=== PATIENT | male | born 1980 | race Caucasian/White ===

== ENCOUNTER 2020-01-28 07:04 | Outpatient (CLI) | payer OTHER ==
[2020-01-28 17:01] LABS: #Basophils 0.1 thou/uL (0.0-0.2); #Eosinphils 0.5 thou/uL (0.0-0.7); #Lymphocytes 2.5 thou/uL (1.20-3.40); #Monocytes 1.1 thou/uL (0.11-0.59); #Neutrophils 5.3 thou/uL (1.40-6.50); %Basophils 0.6 % (0.0-1.0); %Eosinophils 5.1 % (0.0-10.0); %Lymphocytes 26.5 % (21.0-51.0); %Monocytes 11.3 % (0.0-10.0); %Neutrophils 56.6 % (42.0-75.0); Hemoglobin 8.5 g/dL (14.0-18.0); Mean Corpuscular HGB CONC 33.5 g/dL (32.0-36.0); Mean Corpuscular Hemoglobin 38.1 pg (27.0-31.0); Mean Platelet Volume 6.9 fL (7.4-10.4); Platelet Count 163 thou/uL (130-400); RBC Distribution Width 14.2 % (11.5-14.5); Red Blood Cell (RBC) Count 2.23 mill/uL (4.70-6.10); White Blood Cell (WBC) Count 9.3 thou/uL (4.8-10.8)
[2020-01-28 17:24] LABS: ALT (SGPT) 25 U/L (8-55); AST (SGOT) 48 U/L (5-34); Albumin 1.9 g/dL (3.5-5.0); Alkaline Phosphatase 228 U/L (40-110); Anion Gap 8 mmol/L (10-20); BUN (Urea Nitrogen) 17 mg/dL (8.9-20.6); Bilirubin, Total 1.8 mg/dL (0.2-1.2); Calc. Creatinine Clearance 0 mL/min (70-130); Calcium 7.4 mg/dL (7.8-10.44); Carbon Dioxide 22 mmol/L (22-29); Chloride 108 mmol/L (98-107); Estimated GFR-MDRD Greater than 90; Globulin 5.3 g/dL (2.4-3.5); Glucose 103 mg/dL (70-105); Potassium 4.4 mmol/L (3.5-5.1); Protein, Total 7.2 g/dL (6.0-8.3); Sodium 134 mmol/L (136-145)
--- NOTE | 2020-01-28 17:52 | RAD ---
TWO VIEWS OF THE CHEST: 01/28/20 COMPARISON: 01/11/20 HISTORY: Preoperative patient. FINDINGS: Prior examination demonstrated interstitial prominence in the lung bases as well as air space disease in the left base and mid left lung zone. This examination demonstrates mild course residual linear d ensity in the left perihilar region with subtle reticulonodular density in the left upper lobe sugges ting persistent but improving inflammatory/infectious pneumonitis. There is a moderate sized right pl eural effusion present, enlarged when compared to the 01/10/20 examination. No pneumothorax is noted. IMPRESSION: Persistent but improving interstitial opacity in the left perihilar region with left upper lobe retic ulonodular density. Enlarging nonspecific right pleural effusion. POS: [facility]
[2020-01-29 16:50] LABS: SARS-CoV-2 MS2 Positive; SARS-CoV-2 N Gene Negative; SARS-CoV-2 S Gene Negative; SARS-CoV-2 orf1ab Negative
== END 2020-01-28 07:05 | disposition home or self-care (01) ==
LOC: LABBT 07:04
PROVIDERS: ATTEND Surgery
DX: Z01.818 Encounter for other preprocedural examination (principal); Z11.59 Encounter for screening for other viral diseases; K42.9 Umbilical hernia without obstruction or gangrene; K40.30 Unilateral inguinal hernia, with obstruction, without gangrene, not specified as recurrent; J98.4 Other disorders of lung; J90 Pleural effusion, not elsewhere classified
CPT/HCPCS: 71046; 80053; 85025; 87635; 93005; 93010; U0003

== ENCOUNTER → 2020-02-01 | Day surgery (SDC) | payer OTHER ==
[2020-02-01 09:05] LABS: Fluid, pH - Pleural Fld 7.39 (7.60 - 7.66)
[2020-02-01 09:45] LABS: Fluid, Triglycerides 21 mg/dL (Not Available); Pleural Fluid, Amylase Less than 30 U/L (Not Available); Pleural Fluid, Glucose 112 mg/dL; Pleural Fluid, LDH Less than 25 U/L (Not Available); Pleural Fluid, Protein Less than 1.0 g/dL
[2020-02-01 11:01] LABS: RBC Count-Automated (BF) 638 /cu.mm; WBC/Nucleated-Auto (BF) 105 uL
[2020-02-01 11:12] LABS: BF Color Yellow; Body Fluid Source Thoracentesis Fluid; Clarity Hazy (Clear); Tube # EDTA
[2020-02-01 11:16] LABS: BF Segmented Neutrophils 8 %; Cell Count Non Hematic 77 %; Lymphocytes 15 %
--- NOTE | 2020-02-01 12:04 | RAD ---
CHEST 1 VIEW: INDICATION: History of thoracentesis. COMPARISON: Prior exam dated 01/28/2020. FINDINGS: No pneumothorax is evident. Moderate right pleural effusion persists. Interstitial airspace opacity of the left upper lobe is stable-appearing. Cardiac silhouette that is upper limits of normal for s ize is stable-appearing. Osseous structures are unchanged. IMPRESSION: 1. Stable right-sided pleural effusion. 2. Stable interstitial and airspace opacities of the left upper lobe. POS: [facility]
--- NOTE | 2020-02-01 13:09 | OP ---
DATE OF PROCEDURE: 02/01/2020 PROCEDURE PERFORMED: Thoracentesis. INDICATION FOR PROCEDURE: Pleural effusion, rule out empyema. DESCRIPTION OF PROCEDURE: After informed consent, the right posterior thorax was cleaned with chlorhexidine, 1% lidocaine was infiltrated into the right 9th intercostal space in the midscapular line. Pleural cavity was entered, and slightly turbid yellow fluid about a total of 20 mL was removed initially. Thereafter, using an 8-Chadian catheter, total of 2000 mL, 2 L was removed without difficulty. It appears that fluid may be secondary to his ascites. However, culture and cytology have been performed. Once x-ray has been reviewed, he can be discharged home. Follow up with his primary care physician. Job ID: [id number]
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
== END ==
LOC: SDC 07:41
PROVIDERS: ATTEND Internal Medicine Pulmonary Disease
PROC: 0W993ZZ Drainage of Right Pleural Cavity, Percutaneous Approach (ICD-10-PCS; principal; 2020-02-01)
DX: J90 Pleural effusion, not elsewhere classified (principal); R18.8 Other ascites; Z87.891 Personal history of nicotine dependence
CPT/HCPCS: 32554; 71045; 82150; 82945; 83615; 84157; 84478; 85060; 87070; 87116; 87205; 87206; 88112; 88305; 89051; J1642

== ENCOUNTER 2020-02-03 09:58 | Inpatient (IN) | payer OTHER, SELFPAY ==
[2020-02-03 11:05] LABS: #Basophils 0.1 thou/uL (0.0-0.2); #Eosinphils 0.2 thou/uL (0.0-0.7); #Lymphocytes 2.5 thou/uL (1.20-3.40); #Neutrophils 4.8 thou/uL (1.40-6.50); %Eosinophils 2.6 % (0.0-10.0); %Monocytes 11.4 % (0.0-10.0); Hemoglobin 9.7 g/dL (14.0-18.0); Mean Corpuscular HGB CONC 32.5 g/dL (32.0-36.0); Mean Corpuscular Hemoglobin 37.2 pg (27.0-31.0); Mean Platelet Volume 6.5 fL (7.4-10.4); Platelet Count 258 thou/uL (130-400); RBC Distribution Width 14.8 % (11.5-14.5); Red Blood Cell (RBC) Count 2.62 mill/uL (4.70-6.10); White Blood Cell (WBC) Count 8.6 thou/uL (4.8-10.8)
[2020-02-03 11:12] LABS: INR-International Normal Ratio 1.7; PTT 38.4 sec (22.9-36.1); Prothrombin Time 19.4 sec (12.0-14.7)
[2020-02-03 12:04] LABS: ALT (SGPT) 30 U/L (8-55); AST (SGOT) 85 U/L (5-34); Albumin 2.1 g/dL (3.5-5.0); Alkaline Phosphatase 263 U/L (40-110); Anion Gap 9 mmol/L (10-20); BUN (Urea Nitrogen) 16 mg/dL (8.9-20.6); Bilirubin, Total 1.9 mg/dL (0.2-1.2); CK (CPK) 69 U/L (30-200); Calc. Creatinine Clearance 0 mL/min (70-130); Calcium 7.5 mg/dL (7.8-10.44); Carbon Dioxide 21 mmol/L (22-29); Chloride 109 mmol/L (98-107); Estimated GFR-MDRD Greater than 90; Globulin 6.7 g/dL (2.4-3.5); Glucose 91 mg/dL (70-105); Lipase 61 U/L (8-78); Potassium 4.8 mmol/L (3.5-5.1); Protein, Total 8.8 g/dL (6.0-8.3); Sodium 134 mmol/L (136-145)
--- NOTE | 2020-02-03 13:52 | RAD ---
PORTABLE CHEST: 02/03/20 HISTORY: Patient was seen two days ago and fluid drained from the lungs. Now reports increased swelling in leg s and abdomen. COMPARISON: A 02/11 chest x-ray. The film is shot in a somewhat lordotic fashion. Heart size is within normal limits considering the t echnique. Right sided pleural effusion is stable as compared to the prior exam. No new process. IMPRESSION: Stable exam. POS: [facility]
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
[2020-02-03] MEDS ORDERED: Sodium Bicarbonate 2.5 MEQ/5 ML VIAL ONE (14:12)
[2020-02-03] MEDS ORDERED: Lidocaine 1% PF 5 ML VIAL ONE (14:13)
[2020-02-03] MEDS ORDERED: Ondansetron PF 4 MG/2 ML Vial IVP PRN (14:19)
[2020-02-03] MEDS ORDERED: Acetaminophen 325 MG TAB PO PRN (14:19)
--- NOTE | 2020-02-03 15:39 | ULT ---
Sonographic guided paracentesis HISTORY: Symptomatic Ascites. FINDINGS: After explaining the procedure and answering all questions, sonographic survey of the abdom en showed a large amount of free fluid. Sterile technique, buffered local anesthesia, sonographic guidance, and a right lateral approach were used to carefully advance a 19-gauge Yueh needle and catheter into the free fluid. Catheter was left to drain a total volume of 4.0 L clear yellow liquid. Patient was limited to 4 L gi mallory that he has not built a tolerance for drainage. Catheter was removed with moderate amount of free fluid remaining. Patient tolerated the procedure we ll and was returned in improved condition. IMPRESSION : Technically successful sonographic guided paracentesis. A portion was sent to pathology for evaluatio n.
[2020-02-03 16:06] LABS: RBC Count-Automated (BF) 376 /cu.mm; WBC/Nucleated-Auto (BF) 178 uL
[2020-02-03 16:19] VITALS: BMI 26.0
[2020-02-03 16:26] LABS: BF Color Yellow; Body Fluid Source Ascites Body Fluid; Clarity Hazy (Clear); Tube # EDTA
[2020-02-03 16:30] LABS: BF Segmented Neutrophils 11 %; Cell Count Non Hematic 32 %; Eosinophils 1 %; Lymphocytes 55 %
[2020-02-03] MEDS: Furosemide 40 MG/4 ML VIAL SLOW IVP SCH ×2 (18:09→21:18)
[2020-02-03 18:26] LABS: Fluid, Protein 1.2 g/dL (Not Available)
[2020-02-03] MEDS: Morphine 2 MG/ML SYRINGE SLOW IVP PRN (21:13)
[2020-02-04 05:42] LABS: #Basophils 0.1 thou/uL (0.0-0.2); #Eosinphils 0.2 thou/uL (0.0-0.7); #Neutrophils 4.6 thou/uL (1.40-6.50); %Basophils 0.9 % (0.0-1.0); %Eosinophils 2.8 % (0.0-10.0); %Lymphocytes 33.4 % (21.0-51.0); %Monocytes 11.1 % (0.0-10.0); %Neutrophils 51.7 % (42.0-75.0); Hemoglobin 8.3 g/dL (14.0-18.0); Mean Corpuscular HGB CONC 33.5 g/dL (32.0-36.0); Mean Platelet Volume 6.4 fL (7.4-10.4); Platelet Count 217 thou/uL (130-400); RBC Distribution Width 14.9 % (11.5-14.5); Red Blood Cell (RBC) Count 2.17 mill/uL (4.70-6.10)
[2020-02-04 06:00] LABS: Anion Gap 4 mmol/L (10-20); BUN (Urea Nitrogen) 15 mg/dL (8.9-20.6); Calc. Creatinine Clearance 190 mL/min (70-130); Calcium 7.1 mg/dL (7.8-10.44); Carbon Dioxide 24 mmol/L (22-29); Chloride 107 mmol/L (98-107); Estimated GFR-MDRD Greater than 90; Glucose 87 mg/dL (70-105); Sodium 131 mmol/L (136-145)
[2020-02-04] MEDS: Morphine 2 MG/ML SYRINGE SLOW IVP PRN ×3 (06:46→20:54)
[2020-02-04] MEDS ORDERED: Spironolactone 25 MG TAB PO SCH (09:15)
--- NOTE | 2020-02-04 10:02 | ULT ---
Sonogram right upper quadrant HISTORY: Right quadrant pain. Cirrhosis. FINDINGS: Gallbladder is incompletely distended. No stones visible. Wall measures up to 1.0 cm. Patie nt was reportedly not tender over the gallbladder fossa at the time of the exam. Common duct is 0.4 cm. Liver has a heterogeneous echotexture and nodular contour. No focal mass or intrahepatic biliary dila tation. Moderate amount of free fluid is evident throughout the right upper quadrant. IMPRESSION : Cirrhotic appearance of the liver. No evidence of biliary obstruction. Thickened gallbladder wall is nonspecific in the setting of liver ascites. Moderate ascites. .
[2020-02-04 10:17] LABS: ALT (SGPT) 24 U/L (8-55); AST (SGOT) 61 U/L (5-34); Albumin 1.5 g/dL (3.5-5.0); Alkaline Phosphatase 205 U/L (40-110); Bilirubin, Direct 0.8 mg/dL (0.1-0.3); Bilirubin, Total 1.3 mg/dL (0.2-1.2); Protein, Total 6.6 g/dL (6.0-8.3)
[2020-02-04 10:45] LABS: Ferritin 325.64 ng/mL (22-322); Thyroid Stimulating Hormone 1.5048 uIU/mL (0.35-4.94)
--- NOTE | 2020-02-04 14:48 | PDOC.HOSPP ---
- Subjective Encounter Date: 02/04/20 Encounter Time: 12:00 Subjective: THe patient reports significant improvement in abd distension. States he feels more relief. SOB has improved. He denies chest pain Patient still has significant swelling in legs - Objective Vital Signs & Weight: Vital Signs (12 hours) Temp Pulse Resp BP Pulse Ox 02/04/20 07:17 98.7 F 98 16 120/76 94 L 02/04/20 04:33 99.0 F 100 16 116/69 94 L Weight Weight 186 lb 12.8 oz I&O: 02/03/20 02/04/20 02/05/20 06:59 06:59 06:59 Output Total 1650 Balance -1650 Result Diagrams: 02/04/20 05:32 02/04/20 05:32 Hospitalist ROS - Review of Systems Constitutional: denies: fever, chills - Medication Medications: Active Medications Generic Name Dose Route Start Last Admin Trade Name Freq PRN Reason Stop Dose Admin Morphine Sulfate 2 mg 02/03/20 18:10 02/04/20 14:45 Morphine SLOW IVP 2 mg Q4H PRN Administration Severe Pain (7-10) - Exam General Appearance: NAD, awake alert Eye: PERRL, anicteric sclera ENT: normocephalic atraumatic, no oropharyngeal lesions Neck: supple, no JVD Heart: RRR, no murmur, no gallops, no rubs Respiratory: CTAB, no wheezes, no rales, no ronchi, no tachypnea Gastrointestinal - other findings: abdomen distended, dull to percussoin Extremities - other findings: 3+ edema, worst on RLE. SUrgical scar RLE from fasciotomy Skin - other findings: mild erythema RLE Neurological: cranial nerve grossly intact, normal sensation to touch, no focal deficits, no new deficit Musculoskeletal: normal tone, normal strength, no muscle wasting Hosp A/P - Plan This is a 39 year old male with past medical history of cirrhosis presenting with ascites #Decompensated cirrhosis #Right sided pleural effusion - ordered for paracentesis, patient had 4L drained. Fluid culture growing gram + rods, no organisms however. Cell count negative for SBP - hep C negative, hep B serology ordered, as well as ceruloplasmin, ANCA, anti- smooth muscle, antimitochondrial antibody. Ferritin elevated. - will place GI consult since its new diagnosis - MELD > 18, would need liver transplant at some point. Pt reports not drinking alcohol for past four months - ordered spironolactone, continue 40 mg IV lasix Macrocytic anemia - Hb 9, likely from liver disease. B12 high, folate and TSH normal Transaminitis - AST improving to 65 Hyponatremia - decreased to 131. Continue diuresis
[2020-02-04] MEDS ORDERED: Furosemide 40 MG/4 ML VIAL SLOW IVP SCH (15:00)
[2020-02-04] MEDS: Furosemide 40 MG/4 ML VIAL SLOW IVP SCH (20:54)
[2020-02-04] MEDS ORDERED: Vancomycin 1 GM in Premix Bag 1 BAG IVPB SCH (21:00)
--- NOTE | 2020-02-04 21:31 | CON ---
DATE OF CONSULTATION: 02/04/2020 REQUESTING PHYSICIAN: Arleen Betts MD REASON FOR CONSULTATION: Cirrhosis. HISTORY OF PRESENT ILLNESS: Gato Alvarado is a very pleasant 39-year-old man. He has a prior history of long-term tobacco and alcohol abuse with really heavy daily alcohol use for many years until about four months ago when he entered [facility] in [place]. He has now been completely abstinent from tobacco and alcohol for the past four months. His only alcohol-related pertinent history was evidently an alcohol-related seizure last year in [place]. He has no prior known history of liver disease. He was recently hospitalized here within the past couple of weeks with a right pleural effusion and underwent thoracentesis. He was not discharged on any diuretics and he started getting worsening shortness of breath over the past couple of weeks, as well as new abdominal distention and new bilateral lower extremity edema over the past 1 to 2 weeks as well. The tightness in the abdomen has been uncomfortable, but otherwise not painful. He has felt that maybe he has had a drop in urine output as well. There has been no change in bowel habits, which continued to be normal with no melena or hematochezia. There is no associated nausea or vomiting or fevers. He has not been on any special diet or any medications as an outpatient. Upon admission yesterday, ultrasound imaging showed a moderate amount of ascites and chest x-ray showed stable right pleural effusion. He has a cirrhotic liver configuration with normal common bile duct. He has some mild elevation in alkaline phosphatase and AST and is severely hypoalbuminemic with albumin 1.5. He also has coagulopathy with INR 1.7, but normal platelet count. He has received a dose of IV Lasix and had 1650 of urine output yesterday. He is also being started on spironolactone. He does feel his abdomen is less distended after a 4 L paracentesis yesterday. He has never undergone upper or lower endoscopy. Multiple labs are still pending. REVIEW OF SYSTEMS: Full review of systems including constitutional, head, eyes, ears, nose, throat, GI, , cardiovascular, respiratory, musculoskeletal, and neurologic systems is negative except as noted in the HPI. PAST MEDICAL HISTORY: 1. Cirrhosis, new diagnosis based on current presentation and imaging findings. 2. Right pleural effusion, status post thoracentesis. 3. Alcoholic seizure, May 2019. ALLERGIES: NO KNOWN DRUG ALLERGIES. OUTPATIENT MEDICATIONS: None. INPATIENT MEDICATIONS: 1. Lasix 40 mg IV daily. 2. Morphine p.r.n. 3. Zofran p.r.n. 4. Tylenol p.r.n. FAMILY HISTORY: Significant for cardiac disease. He also had an uncle with alcoholic liver disease, who of liver cancer. SOCIAL HISTORY: The patient is a former smoker, but quit four months ago. He formally abused alcohol heavily with the equivalent of probably 12 beers per day for many years. He quit all alcohol 4 months ago. Remote history of marijuana, none currently. PHYSICAL EXAMINATION: VITAL SIGNS: Temperature 98.7, pulse 98, blood pressure 120/76, and 94% oxygen saturation on room air. GENERAL: A 39-year-old man, lying in bed comfortably, in no distress. SKIN: He is not jaundiced. No rashes were palpable. EYES: No scleral icterus. Extraocular movements intact. ENT: Mucous membranes moist. No oral lesions. LYMPH: No submandibular or supraclavicular lymphadenopathy. THYROID: Nontender to palpation. HEART: Regular rate and rhythm. LUNGS: Decreased breath sounds on the right, but no respiratory distress. No wheezing. ABDOMEN: Distended with ascites. The abdomen is not tense; however. Bowel sounds are active. Dull to percussion on the flanks. Nontender to palpation throughout. He has an umbilical hernia, which is easily reducible. EXTREMITIES: He has 2+ bilateral lower extremity edema. He has had traumatic amputation of the right foot as well as evidence of trauma to the right leg and vein graft from the left leg. NEUROLOGIC: Cranial nerves 2 through 12 intact bilaterally. No focal deficits. No asterixis. LABORATORY STUDIES: WBC 9.0, hemoglobin 8.3, MCV 113, and platelets 217. INR 1.7. BNP only 33.9. Sodium 131, potassium 4.0, BUN 15, creatinine 0.62, glucose 87, total bilirubin 1.3, direct bilirubin 0.8, alkaline phosphatase 205, AST 61, ALT 24, albumin 1.5, and lipase only 61. Troponin negative. TSH normal at 1.5. Vitamin B12 normal at 1564, folic acid normal at 9.7, ferritin level is elevated to 325.6, but transferrin is low at 98. Hepatitis C antibody negative. HIV antibody negative. Other labs still pending including AMAYA, ASMA, AMA, ceruloplasmin, and hepatitis B serology. Ascites fluid studies show 178 wbc's, but only 11% PMNs. Fluid total protein is 1.2, LDH 48, amylase 19, and fluid albumin is pending. Fluid culture is showing gram-positive rods with identification pending. IMAGING STUDIES: Chest x-ray shows stable right pleural effusion. Abdominal ultrasound shows cirrhotic liver configuration. No liver mass. There is moderate ascites, nonspecific gallbladder wall thickening with normal common bile duct 4 mm. ASSESSMENT AND PLAN: 1. Cirrhosis, likely secondary to chronic alcohol abuse, with new decompensation. 2. Ascites with anasarca. I note the patient has normal BNP and what appears to be good renal function, ascites fluid total protein is low at 1.2 with fluid albumin only 1.5. This is all highly suggestive of transudate with ascites secondary to cirrhosis and portal hypertension. This would be the initial decompensation of his cirrhosis as he had no prior diagnosis. The ascites fluid cell counts do not meet criteria for SBP, also note the absence of fever or significant abdominal pain, despite the fluid culture showing gram-positive rods. Await further identification on this, may be a contaminant. I had a long discussion with the patient about ascites management. He has already undergone 4 L paracentesis. The longer term management consists of low-sodium diet of less than 2000 mg sodium per day, as well as diuretic therapy. Agree with continuing IV Lasix while inpatient. On hospital discharge, would recommend sending him home with Lasix 40 mg daily and spironolactone 100 mg daily. It is possible he will require repeat paracentesis while diuretic doses are being adjusted. He will need to follow up closely in GI/liver Clinic. 3. Hypoalbuminemia likely secondary to cirrhosis contributing to fluid overload. 4. HCC screening. Note his abdominal ultrasound does not show any evidence of liver mass. We will order an AFP level with morning labs. We will need to repeat imaging an AFP level every six months. Discussed with the patient. 5. Risk for possible esophageal varices. The patient is going to need upper endoscopy at some point in the near future to assess for the presence of possible esophageal varices given his findings of portal hypertension. However, I would not proceed with esophagogastroduodenoscopy right now in the acute setting, until his fluid management issues are better controlled, so we will plan on esophagogastroduodenoscopy in the outpatient setting in the coming weeks or months. 6. Anemia, macrocytic. This is likely secondary to prior alcohol abuse, cirrhosis, relatively poor nutrition. Note, B12 and folic acid levels are normal. We will probably plan on colonoscopy along with esophagogastroduodenoscopy on an outpatient basis. 7. Still awaiting further labs including AMAYA, ASMA, AMA, ceruloplasmin, and hepatitis B serologies. We can follow these up on an outpatient basis. I suspect that his cirrhosis is indeed secondary to a long history of alcohol abuse, but I encouraged him on his alcohol abstinence for the past four months, and emphasize that he cannot go back to drinking ever again. 8. Again, we will plan to see him back in the GI Clinic in the next few weeks, monitor electrolytes and fluid status. If he is having clinical or laboratory deterioration despite all these measures, we could consider outpatient referral to one of the liver transplant centers in [place]. Thank you for the consultation. Please call anytime with questions or concerns. Job ID: [id number]
[2020-02-04] MEDS ORDERED: cefTRIAXone Sodium 1,000 MG in Syringe 0 ML IVPB SCH (22:30)
[2020-02-04] MEDS: cefTRIAXone\\ROCEPHIN 1 GM in Sodium Chloride 0.9% 100 ML IVPB SCH (23:21)
[2020-02-05] MEDS: Morphine 2 MG/ML SYRINGE SLOW IVP PRN ×4 (04:32→21:50)
[2020-02-05 06:37] LABS: Hemoglobin 9.2 g/dL (14.0-18.0); Mean Corpuscular HGB CONC 32.9 g/dL (32.0-36.0); Mean Platelet Volume 6.2 fL (7.4-10.4); Platelet Count 239 thou/uL (130-400); RBC Distribution Width 14.9 % (11.5-14.5)
[2020-02-05 07:01] LABS: Anion Gap 9 mmol/L (10-20); BUN (Urea Nitrogen) 15 mg/dL (8.9-20.6); Calc. Creatinine Clearance 190 mL/min (70-130); Calcium 7.2 mg/dL (7.8-10.44); Carbon Dioxide 22 mmol/L (22-29); Chloride 105 mmol/L (98-107); Estimated GFR-MDRD Greater than 90; Glucose 84 mg/dL (70-105); Sodium 132 mmol/L (136-145)
[2020-02-05] MEDS: Furosemide 40 MG/4 ML VIAL SLOW IVP SCH ×2 (08:55→21:40)
--- NOTE | 2020-02-05 13:56 | PRG ---
DATE OF SERVICE: 02/05/2020 SUBJECTIVE: Mr. Alvarado is feeling pretty well. He feels his abdominal distention is about the same. He continues on IV Lasix. He has been afebrile. Peritoneal fluid is growing out presumptive Corynebacterium. He received a dose of IV vancomycin and is now receiving IV ceftriaxone. OBJECTIVE: VITAL SIGNS: Temperature 98.2, pulse 95, blood pressure 111/65, 94% oxygen saturation on room air. GENERAL: No acute distress. HEART: Regular rate and rhythm. LUNGS: Clear to auscultation bilaterally. ABDOMEN: Distended with ascites, not tense, umbilical hernia is easily reducible, nontender. Bowel sounds present. EXTREMITIES: 1+ bilateral lower extremity edema. LABORATORY DATA: Hemoglobin 9.2, WBC 9.0, platelets 239. INR 1.7. Sodium 132, potassium 4.0, BUN 15, creatinine 0.62, calcium 7.2. AFP is normal at 2.0. Peritoneal fluid, albumin is still pending, total protein 1.2, WBC is 178, only 11% neutrophils, but peritoneal fluid culture is growing presumptive Corynebacterium with further identification and susceptibilities pending. ASSESSMENT AND PLAN: 1. Cirrhosis, likely secondary to alcohol, now with initial decompensation. Still awaiting results of autoimmune markers, hepatitis B serology, and ceruloplasmin. Can follow these up on an outpatient basis. I do suspect cirrhosis is secondary to alcohol abuse, but thankfully he has quit drinking for the past 4 months. I encouraged him in this. 2. Ascites with anasarca, ascites fluid total protein is low at 1.2 with serum albumin only 1.5, fluid albumin pending, but this is all highly suggestive of transudate, but this is highly secondary to cirrhosis and portal hypertension. He has normal BNP and good renal function. On his hospital discharge, would recommend Lasix 40 mg daily and spironolactone 100 mg daily. For now, he is receiving IV Lasix. We will start the spironolactone. 3. Bacterial peritonitis. Cell count and differential was not suggestive of SBP, and he has no fever or significant abdominal pain or peritoneal signs. However, the fluid culture is growing back presumptive Corynebacterium species. He is now appropriately receiving ceftriaxone. I am going to give him 100 g of IV albumin over the course of the next 24 hours as well. I anticipate if he is doing clinically well tomorrow, antibiotics could be transitioned over to oral to complete the course. 4. HCC screening. Abdominal ultrasound does not show any evidence of liver mass. AFP is normal. We will need to repeat imaging and AFP level every 6 months. Please call anytime with questions or concerns. We are going to plan to see him back in clinic in the next 2 to 3 weeks. Job ID: [id number]
[2020-02-05] MEDS: Albumin 25% 25 GM/100 ML BOT IVPB SCH ×2 (14:24→21:36)
--- NOTE | 2020-02-05 15:18 | PDOC.HOSPP ---
- Subjective Encounter Date: 02/05/20 Encounter Time: 11:10 Subjective: family at bedside, feels abd distended again. discussed care w.. family. pt from [facility] in [place]. Pt feels that he prefers to get another paracentesis on friday before going back as he is afraid that he needs to be back to get paracentesis again. Explained that this is going to be ongoing issue-- and likely to be done as outpt procedure for the future. labs are pending. - Objective Vital Signs & Weight: Vital Signs (12 hours) Temp Pulse Resp BP Pulse Ox 02/05/20 08:00 94 L 02/05/20 07:29 98.2 F 95 20 111/65 94 L 02/05/20 04:00 98 F 85 20 109/70 94 L Weight Weight 186 lb 12.8 oz I&O: 02/04/20 02/05/20 02/06/20 06:59 06:59 06:59 Output Total 1650 510 Balance -1650 -510 Result Diagrams: 02/05/20 06:16 02/05/20 06:16 Hospitalist ROS - Medication Medications: Active Medications Generic Name Dose Route Start Last Admin Trade Name Freq PRN Reason Stop Dose Admin Albumin Human 25 gm 02/05/20 15:00 02/05/20 14:24 Albumin 25% IVPB 02/06/20 15:01 25 gm 0300,0900,1500,2100 TONNY Administration Furosemide 40 mg 02/04/20 21:00 02/05/20 08:55 Lasix SLOW IVP 40 mg BID TONNY Administration Ceftriaxone Sodium 1 gm/ 100 mls @ 200 mls/hr 02/04/20 23:00 02/04/20 23:21 Sodium Chloride IVPB 100 mls Q24HR TONNY Administration Morphine Sulfate 2 mg 02/03/20 18:10 02/05/20 11:01 Morphine SLOW IVP 2 mg Q4H PRN Administration Severe Pain (7-10) Sodium Chloride 10 ml 02/04/20 21:00 02/05/20 08:55 Flush - Normal Saline IVF 10 ml Q12HR TONNY Administration - Exam General Appearance: NAD, awake alert Eye: PERRL ENT: normocephalic atraumatic Neck: supple Heart: RRR, normal peripheral pulses Respiratory: CTAB, normal chest expansion Gastrointestinal: normal bowel sounds, distended Extremities: 1+ LE edema Neurological: no focal deficits Hosp A/P - Plan Note edited to reflect today's care of plan. discussed care w.. . pt from [facility] in [place]. Pt feels that he prefers to get another paracentesis on friday before going back as he is afraid that he needs to be back to get paracentesis again. Explained that this is going to be ongoing issue-- and likely to be done as outpt procedure for the future. labs are pending. 39 year old male with past medical history of cirrhosis presenting with ascites #Decompensated cirrhosis--alcoholic #Right sided pleural effusion - s/p 4L drained. Fluid culture growing gram + rods, no organisms however. Cell count negative for SBP - hep C negative, hep B serology ordered, as well as ceruloplasmin, ANCA, anti- smooth muscle, antimitochondrial antibody. Ferritin elevated. - will place GI consult since its new diagnosis - MELD > 18, would need liver transplant at some point. Pt reports not drinking alcohol for past four months - spironolactone, continue 40 mg IV lasix -will start lactulose at a low dose \ Macrocytic anemia - Hb 9, likely from liver disease. B12 high, folate and TSH normal Transaminitis without evidence of HCC portal HTN poss. eso varices -q6 months follow up at GI clinic for HCC and US -EGD as outpt workup to r/o or r/in for varices. -will consider adding propranol if BP allows. [he needs to be on high dose lasix as abd..distending already] - AST improving to 65 Hyponatremia, chornic -- with cirrhosis - decreased to 131. Continue diuresis
[2020-02-05] MEDS: cefTRIAXone\\ROCEPHIN 1 GM in Sodium Chloride 0.9% 100 ML IVPB SCH (23:42)
[2020-02-06] MEDS: Morphine 2 MG/ML SYRINGE SLOW IVP PRN ×6 (01:54→23:52)
[2020-02-06] MEDS: Albumin 25% 25 GM/100 ML BOT IVPB SCH ×3 (04:09→14:50)
[2020-02-06] MEDS: Spironolactone 100 MG TAB PO SCH (08:10)
[2020-02-06] MEDS: Furosemide 40 MG/4 ML VIAL SLOW IVP SCH ×2 (08:11→19:38)
--- NOTE | 2020-02-06 12:51 | PDOC.HOSPP ---
- Subjective Encounter Date: 02/06/20 Encounter Time: 10:40 Subjective: resting, LE edema and abd distention getting bigger. pt has no acute c/o. - Objective Vital Signs & Weight: Vital Signs (12 hours) Temp Pulse Resp BP Pulse Ox 02/06/20 11:16 98.3 F 106 H 20 142/88 H 95 02/06/20 07:36 98.0 F 103 H 20 133/83 94 L 02/06/20 04:15 98.1 F 96 16 108/66 92 L Weight Weight 186 lb 12.8 oz I&O: 02/05/20 02/06/20 02/07/20 06:59 06:59 06:59 Intake Total 2019 Output Total 510 950 Balance -510 1070 Result Diagrams: 02/05/20 06:16 02/05/20 06:16 Hospitalist ROS - Medication Medications: Active Medications Generic Name Dose Route Start Last Admin Trade Name Freq PRN Reason Stop Dose Admin Albumin Human 25 gm 02/05/20 15:00 02/06/20 08:10 Albumin 25% IVPB 02/06/20 15:01 25 gm 0300,0900,1500,2100 TONNY Administration Furosemide 40 mg 02/04/20 21:00 02/06/20 08:11 Lasix SLOW IVP 40 mg BID TONNY Administration Morphine Sulfate 2 mg 02/03/20 18:10 02/06/20 10:24 Morphine SLOW IVP 2 mg Q4H PRN Administration Severe Pain (7-10) Sodium Chloride 10 ml 02/04/20 21:00 02/06/20 08:11 Flush - Normal Saline IVF 10 ml Q12HR TONNY Administration Spironolactone 100 mg 02/06/20 08:00 02/06/20 08:10 Aldactone PO 100 mg QAM-WM TONNY Administration - Exam General Appearance: NAD, awake alert Eye: PERRL ENT: normocephalic atraumatic Neck: supple Heart: RRR Respiratory: CTAB, normal chest expansion Gastrointestinal: soft, normal bowel sounds, distended Extremities: 2+ LE edema Neurological: no focal deficits Hosp A/P - Plan Note edited to reflect today's care of plan. discussed care w.. family. pt from [facility] in [place]. Pt feels that he prefers to get another paracentesis on friday before going back as he is afraid that he needs to be back to get paracentesis again. Explained that this is going to be ongoing issue-- and likely to be done as outpt procedure for the future. labs are pending. 39 year old male with past medical history of cirrhosis presenting with ascites #Decompensated cirrhosis--alcoholic #Right sided pleural effusion - s/p 4L drained. Fluid culture growing gram + rods, no organisms however. Cell count negative for SBP - hep C negative, hep B serology ordered, as well as ceruloplasmin, ANCA, anti- smooth muscle, antimitochondrial antibody. Ferritin elevated. - will place GI consult since its new diagnosis - MELD > 18, would need liver transplant at some point. Pt reports not drinking alcohol for past four months - spironolactone, continue 40 mg IV lasix -will start lactulose at a low dose Macrocytic anemia - Hb 9, likely from liver disease. B12 high, folate and TSH normal Transaminitis without evidence of HCC portal HTN poss. eso varices -q6 months follow up at GI clinic for HCC and US -EGD as outpt workup to r/o or r/in for varices. -will consider adding propranol if BP allows. [he needs to be on high dose lasix as abd..distending already] - AST improving to 65 Hyponatremia, chornic -- with cirrhosis - decreased to 131. Continue diuresis need another therapeutic paracentesis. plan for friday by IR - c/s placed.
[2020-02-06 15:10] LABS: ANA Symphony (Qualitative) Negative (Negative); ANA Symphony (Quantitative) 0.4 Ratio (< 0.7 Negative); dsDNA IgG Antibody 2.1 IU/mL (<10 Negative)
--- NOTE | 2020-02-06 15:50 | PRG ---
DATE OF SERVICE: 02/06/2020 SUBJECTIVE: Mr. Alvarado is feeling fine. No fever. Abdomen is still distended about the same, tightness according to him. He is tolerating his diet. No other complaints. OBJECTIVE: VITAL SIGNS: Temperature 98.3, pulse 106, blood pressure 142/88, 95% oxygen saturation on room air. GENERAL: No acute distress. HEART: Regular rate and rhythm. LUNGS: Clear to auscultation bilaterally. ABDOMEN: Distended with ascites, somewhat tense, soft, and nontender to palpation. EXTREMITIES: 1+ bilateral lower extremity edema. LABORATORY STUDIES: Ascites fluid albumin came back as 0.4. Still awaiting results of AMAYA, ASMA, AMA, hepatitis B serology. Ceruloplasmin is only 21.0. ASSESSMENT AND PLAN: 1. Bacterial peritonitis. Cell count, differential was not suggestive of SBP, and he has had no fever or significant abdominal pain or peritoneal signs. However, the fluid cultures growing back presumptive Corynebacterium species. This is unusual and the species that is usually more associated with peritonitis in peritoneal dialysis patients. It is unclear whether this is a real pathogen or not. However, I would go ahead and finish out a week-long course of treatment. He has had IV antibiotics initially vancomycin and then ceftriaxone while here. I would recommend starting oral ciprofloxacin 500 mg twice daily and continuing this for 5 more days. 2. Ascites with anasarca. Ascites fluid total protein is 1.2. Ascites fluid albumin is only 0.4 with serum albumin 1.5, giving a serum ascites albumin gradient of 1.1, all consistent with transudate, with total protein in the fluid only 1.2, consistent with cirrhosis from portal hypertension. He needs to continue on a low-sodium diet. He has been getting Lasix 40 mg IV twice daily while here and we just started spironolactone 100 mg daily. Anticipate discharge on doses of at least Lasix 40 mg daily and spironolactone 100 mg daily. I agree with plan for therapeutic paracentesis tomorrow prior to discharge. Anticipate that the patient could probably be discharged tomorrow on diuretics and oral antibiotics following paracentesis tomorrow again, we will plan to see him back in the GI Clinic in the next 2 to 3 weeks. Please call anytime with questions or concerns. Job ID: [id number]
[2020-02-06 16:19] LABS: EliA Vaculitis New Method **** NEW METHOD ****
[2020-02-06] MEDS: Ciprofloxacin 500 MG TAB PO SCH (19:38)
[2020-02-07] MEDS: Morphine 2 MG/ML SYRINGE SLOW IVP PRN ×3 (03:54→11:50)
[2020-02-07] MEDS: Ciprofloxacin 500 MG TAB PO SCH (06:25)
[2020-02-07] MEDS: Spironolactone 100 MG TAB PO SCH ×2 (08:06→11:47)
[2020-02-07 09:31] LABS: INR-International Normal Ratio 1.8; PTT 41.1 sec (22.9-36.1)
[2020-02-07] MEDS ORDERED: Sodium Bicarbonate 2.5 MEQ/5 ML VIAL ONE (09:52)
--- NOTE | 2020-02-07 10:37 | ULT ---
Exam: Ultrasound guided paracentesis HISTORY: Ascites COMPARISON: 02/03/2020 FINDINGS: Successful ultrasound-guided paracentesis. Total of 6 L of yellow color ascites was aspirat ed. TECHNIQUE: Consent obtained reformatory ultrasound-guided paracentesis. Right lower quadrant was deem ed appropriate. Skin was prepped and draped in a sterile fashion. 1% lidocaine, buffered with sodium bicarbonate was used for local anesthesia. Under ultrasound guidance, a 5 Macedonian 7 cm Yueh cat heter is advanced in the peritoneal space. A total of 6 L of yellow color ascites was aspirated. No immediate or postprocedural complications IMPRESSION: Successful ultrasound-guided paracentesis.
[2020-02-07] MEDS ORDERED: Albumin 25% 25 GM/100 ML BOT IVPB SCH (11:00)
[2020-02-07] MEDS: Furosemide 40 MG/4 ML VIAL SLOW IVP SCH (11:47)
[2020-02-07 12:13] LABS: Smooth Muscle Total ABS 19 Units (0-19)
[2020-02-07 14:13] LABS: Hep B Surface AG-Rflx Sendout Negative (Negative); Hepatitis B Core Total Negative (Negative); Hepatitis B Surface AB-Sendout Non Reactive (.)
[2020-02-07 16:39] VITALS: BP 110/65; TEMP 98
--- NOTE | 2020-02-08 06:22 | DIS ---
DATE OF ADMISSION: 02/03/2020 DATE OF DISCHARGE: 02/07/2020 DISCHARGE DIAGNOSES: 1. Decompensated cirrhosis. 2. Alcoholic cirrhosis. 3. Right-sided pleural effusion. 4. Transaminitis. 5. Macrocytic anemia due to alcohol use. 6. Chronic hyponatremia. 7. Ascites with anasarca. MEDICATIONS: 1. Cipro 500 mg twice a day for 5 days. 2. Lasix 40 mg daily. 3. Spironolactone 100 mg daily. CONSULT: GI with Dr. Mauricio Ruggiero. PROCEDURE: Therapeutic paracentesis x2. PHYSICAL EXAMINATION: VITAL SIGNS: On the day of discharge, his temperature 98.1, pulse 95, blood pressure 114/73, saturating 98% on room air. GENERAL: The patient is alert, oriented. He had a paracentesis today about roughly 6 L of fluid removed. He is getting albumin infusion now. Discussed the discharge plan. He is agreeable provided we are able to help him with the medications he states that he cannot afford. I talked with the field nurse case manager regarding this. ABDOMEN: Mildly distended, but better than the last 2 days. It is soft. Good bowel sounds. CARDIOVASCULAR: Regular rate and rhythm without murmurs, rubs, or gallops. LUNGS: Clear to auscultation bilaterally without wheezing, rales, or rhonchi. ABDOMEN: Soft, nontender, nondistended. HOSPITAL COURSE: This is a 39-year-old male with alcoholic cirrhosis, presented from [facility] [place] with abdominal distention and pain. This is his first paracentesis. He had 4 L of fluid removed that showed some gram-positive kelley, possibly contaminant. SBP ruled out. Hepatitis C negative. AMAYA screen is negative. Still there are proteinase 3, pANCA, myeloperoxidase, ANCA pattern, they are all pending. His antimitochondrial antibody on the low titer, smooth muscle antibody is also on the low titer. On February 06, he had a second paracentesis done with 6 L of ascites removed. He had started on vancomycin and then ceftriaxone. SBP ruled out. His fluid culture growing Corynebacterium species, but it is very likely contaminant. After stopping his IV vancomycin and ceftriaxone, we switched him to ciprofloxacin and he will complete the course for 5 more days. Ascitic fluid study, albumin is only 0.4 with a serum albumin of 1.5 with a gradient of 1.1 consistent with a transudate. Again, a fluid protein is 1.2, also consistent with cirrhosis. He was started on Lasix IV and transitioned to p.o. Also discharged with spironolactone 100 mg daily. He likely has portal hypertension. He will follow with Dr. Ruggiero's group in couple of weeks for possible EGD to evaluate if he has any esophageal varices as consequence of portal hypertension. During his entire stay, the patient did not show any signs of confusion/hepatic encephalopathy. If there is need, consider starting him on lactulose. We will leave that to the GI as well as primary care physician. He is hemodynamically stable to be discharged home today. DISCHARGE INSTRUCTIONS: 1. Activity as tolerated. Fluid restriction diet as well as low-sodium diet. 2. Follow up with primary care physician in 1 week. Follow up with Dr. Ruggiero in 2 weeks. TIME SPENT: Discharge time took over 30 minutes. Job ID: [id number] [facility]
[2020-02-08 14:36] LABS: Cytoplasmic (C-ANCA) <1:20 titer (Neg:<1:20); Myeloperoxidase AutoAbs <9.0 U/mL (0.0-9.0); Perinuclear (P-ANCA) <1:20 titer (Neg:<1:20); Proteinase-3 AutoAbs Less than 3.5 U/mL (0.0-3.5)
--- NOTE | 2020-02-12 10:56 | EKG ---
Test Reason : Blood Pressure : / mmHG Vent. Rate : 088 BPM Atrial Rate : 088 BPM P-R Int : 120 ms QRS Dur : 096 ms QT Int : 382 ms P-R-T Axes : 013 -02 013 degrees QTc Int : 462 ms Normal sinus rhythm Cannot rule out Anterior infarct , age undetermined Abnormal ECG Confirmed by MAXWELL BRANNON DO ([id number]), writer editor OKSANA HOUSTON ([id number]) on 02/12/2020 10:56:21 AM Referred By: Confirmed By:MAXWELL BRANNON DO
== END 2020-02-07 15:32 | disposition home or self-care (01) | DRG 433 ==
LOC: ERS 09:58 → OBSVTOIN 13:33 → T4-A 13:33
PROVIDERS: ADMIT Internal Medicine; ATTEND Internal Medicine
PROC: 0W9G3ZZ Drainage of Peritoneal Cavity, Percutaneous Approach (ICD-10-PCS; principal; 2020-02-03)
PROC: 0W9G3ZZ Drainage of Peritoneal Cavity, Percutaneous Approach (ICD-10-PCS; 2020-02-07)
DX: K70.31 Alcoholic cirrhosis of liver with ascites (principal); J90 Pleural effusion, not elsewhere classified; E87.1 Hypo-osmolality and hyponatremia; K76.6 Portal hypertension; R74.0 Nonspecific elevation of levels of transaminase and lactic acid dehydrogenase [LDH]; D53.9 Nutritional anemia, unspecified; E88.09 Other disorders of plasma-protein metabolism, not elsewhere classified; E83.51 Hypocalcemia; Z89.431 Acquired absence of right foot; Z89.411 Acquired absence of right great toe; Z87.891 Personal history of nicotine dependence; Z89.421 Acquired absence of other right toe(s); F14.10 Cocaine abuse, uncomplicated; F12.10 Cannabis abuse, uncomplicated; F10.21 Alcohol dependence, in remission
CPT/HCPCS: 36415; 49083; 71045; 76705; 80048; 80053; 80076; 82042; 82105; 82150; 82390; 82550; 82607; 82728; 82746; 83516; 83520; 83615; 83690; 83880; 84157; 84443; 84466; 84484; 85025; 85027; 85060; 85610; 85730; 86038; 86225; 86256; 86704; 86705; 86706; 86707; 87070; 87205; 87340; 87350; 89051; 93005; J0696; J1940; J2001; J2270; J3370; J3490; P9047

== ENCOUNTER 2020-05-31 08:19 | Inpatient (IN) | payer OTHER, SELFPAY ==
[2020-05-31] MEDS ORDERED: Iopamidol-370 76% 500 ML 1 ML ONE ×2 (08:46→08:54)
[2020-05-31] MEDS ORDERED: Rocuronium Bromide 10 MG/ML (10ML VIAL) ONE (08:59)
[2020-05-31] MEDS ORDERED: Dexamethasone 20 MG/5 ML VIAL ONE (08:59)
[2020-05-31] MEDS ORDERED: Succinylcholine Chloride 20 MG/ML 10 ml SYRINGE FS ONE (08:59)
[2020-05-31] MEDS ORDERED: Ondansetron PF 4 MG/2 ML Vial ONE ×2 (08:59→09:59)
[2020-05-31] MEDS ORDERED: Lidocaine 1% PF 5 ML VIAL ONE (08:59)
[2020-05-31 09:21] LABS: INR-International Normal Ratio 2.3; Prothrombin Time 25.3 sec (12.0-14.7)
[2020-05-31 09:22] LABS: PTT 44.8 sec (22.9-36.1)
[2020-05-31 09:35] LABS: Bilirubin 1+ (Negative); Blood, Urine 3+ (Negative); Clarity Turbid (Clear); Glucose, Urine (Dipstick) 30 mg/dL (Negative); Ketone, Urine Negative (Negative); Leukocyte Negative Leu/uL (Negative); Nitrite Negative (Negative); Protein, Urine (Dipstick) 50 mg/dL (Neg-Trace); RBC/HPF 21-50 HPF (0-3); Squamous Epithelial 0-3 HPF (0-3); pH, Urine 5.5 (5.0-9.0)
[2020-05-31 09:38] LABS: ALT (SGPT) 31 U/L (8-55); AST (SGOT) 136 U/L (5-34); Albumin 2.7 g/dL (3.5-5.0); Alkaline Phosphatase 186 U/L (40-110); Anion Gap 20 mmol/L (10-20); BUN (Urea Nitrogen) 22 mg/dL (8.9-20.6); Bilirubin, Total 4.3 mg/dL (0.2-1.2); CK (CPK) 391 U/L (30-200); Calc. Creatinine Clearance 0 mL/min (70-130); Calcium 7.6 mg/dL (7.8-10.44); Carbon Dioxide 19 mmol/L (22-29); Chloride 98 mmol/L (98-107); Estimated GFR-MDRD 60; Globulin 5.3 g/dL (2.4-3.5); Glucose 104 mg/dL (70-105); Lipase 16 U/L (8-78); Potassium 3.9 mmol/L (3.5-5.1); Sodium 133 mmol/L (136-145)
[2020-05-31 09:52] LABS: Bacteria/HPF 2+ HPF (None Seen)
--- NOTE | 2020-05-31 09:53 | RAD ---
PORTABLE CHEST 1 VIEW: Date: 05/31/2020 Time: 0852 hours HISTORY: Headache, abdominal pain, body aches. COMPARISON: 02/03/2020. FINDINGS: The heart size is normal. The lungs are well expanded without focal areas of consolidation, pneumotho races, or pleural effusions. IMPRESSION: No radiographic evidence of acute cardiopulmonary process. POS: AH
[2020-05-31 10:01] LABS: Hemoglobin 12.3 g/dL (14.0-18.0); Mean Corpuscular HGB CONC 32.1 g/dL (32.0-36.0); Mean Corpuscular Hemoglobin 35.3 pg (27.0-31.0); Mean Platelet Volume 8.5 fL (7.4-10.4); Platelet Count 79 thou/uL (130-400); RBC Distribution Width 13.7 % (11.5-14.5); Red Blood Cell (RBC) Count 3.49 mill/uL (4.70-6.10); White Blood Cell (WBC) Count 6.1 thou/uL (4.8-10.8)
[2020-05-31 10:03] LABS: Band 49 % (5-11); Lymphocytes 4 % (21-51); MDiff Complete? YES; Macrocytosis MODERATE=16-30 cells (100X) (0-5/hpf); Metamyelocyte 12 % (0-0); Monocytes 3 % (0-10); Neutrophil 31 % (42-75); Platelet Morphology Comment Appears Decreased; Polychromasia SLIGHT = 2-3 cells (100X) (0-2/hpf); Reactive Lymphocytes 1 % (0-10); Reflex for Review?? YES; Toxic Granulation SLIGHT; Vacuoles MODERATE
[2020-05-31] MEDS ORDERED: Morphine 4 MG/ML VIAL ONE (10:16)
[2020-05-31] MEDS ORDERED: Pantoprazole 40 MG VIAL ONE (11:02)
[2020-05-31] MEDS ORDERED: cefTRIAXone\\ROCEPHIN 1 GM VIAL ONE (11:02)
--- NOTE | 2020-05-31 11:25 | ULT ---
VENOUS DOPPLER ULTRASOUND OF THE LEFT LOWER EXTREMITY: Date: 05/31/2020 HISTORY: Left leg pain. TECHNIQUE: Wells scale ultrasound with color flow and spectral Doppler imaging of the deep venous system of the l eft lower extremity was performed. FINDINGS: There is good flow, compression, and augmentation noted in the left common femoral, femoral, deep fem oral, popliteal, posterior tibial, and greater saphenous veins. No fluid collection is seen in the po sterior left thigh (region of pain). IMPRESSION: No evidence of deep venous thrombosis in the left lower extremity. POS: AH
--- NOTE | 2020-05-31 12:09 | CT ---
CT ABDOMEN AND PELVIS WITH IV CONTRAST 05/31/2020 CLINICAL INFORMATION: Epigastric abdominal pain with nausea and vomiting. History of cirrhosis. COMPARISON: Noncontrast CT abdomen and pelvis on 01/05/2020 Technique: Multiple contiguous axial CT images are obtained through the abdomen and pelvis with IV contrast. Cor onal reformatted images are provided. FINDINGS: Lower Chest: Right pleural effusion has resolved. Lung bases are clear. Vessels: The abdominal aorta is normal in caliber. IVC is distended. There are esophageal and gastroh epatic as well as splenic varices identified suggesting portal hypertension. Abdomen: Portal vein:The right portal vein is small in caliber, there is enhancement of the portal veins bilat erally as well as superior mesenteric vein. Gallbladder: Distended measuring greater than 10 cm in length. A tiny calcification seen along the wa ll of the fundus of the gallbladder. Liver: Nodular peripheral contour suggesting cirrhosis. There is generalized heterogeneity of the leticia er may be related to liver disease and areas of fatty infiltration. Left hepatic lobe extends into the left upper quadrant. Spleen: At the upper limits of normal in size to borderline enlarged measuring 13.6 cm in AP dimensio ns. Pancreas: within normal limits. Adrenals: within normal limits. Kidneys: within normal limits. Bowel: There is suggestion of mild bowel wall thickening involving the duodenum and loops of proximal jejunum which are fluid-filled. Findings may be be related to portal hypertension, but enteritis is a possibility. There is thickening involving the salazar of the ascending colon. This could be relat ed to colitis or possibly secondary to portal hypertension. Given short segment of involvement, colonoscopy is recommended for further evaluation. In addition, there is thickening of the salazar of t he distal esophagus. Endoscopy is suggested for further evaluation. Bowel wall thickening was not present on prior exam on 01/05/2020. Appendix: The appendix is visualized and normal in caliber. Peritoneum: Small to moderate amount of intraperitoneal free fluid. No fluid collection is seen. Mesentery and Retroperitoneum: No enlarged mesenteric or retroperitoneal lymph nodes. Abdominal Wall: There is a small umbilical hernia containing fluid. There is also evidence of a moder ate-sized right inguinal hernia containing fluid. Enlarged right inguinal lymph nodes are present largest measuring 1.4 cm and 1.3 cm in short axis dimension. Minimal subcutaneous edema is seen in ea ch inguinal region. Pelvis: Reproductive Organs: No pelvic masses. Bladder: Mostly decompressed. Bones: No suspicious lytic or sclerotic osseous lesions. IMPRESSION: 1. Evidence of cirrhosis with findings suggesting portal hypertension with esophageal, gastrohepatic, and splenic varices visualized. 2. Gallbladder distention suggesting gallbladder hydrops. 3. Heterogeneity of the liver which may be related to liver disease and areas of fatty infiltration. No focal enhancing lesion is appreciated. 4. Upper limits of normal to borderline splenomegaly. 5. Thickening involving the salazar of the distal esophagus. This may in part be related to the esophag eal varices secondary to portal hypertension appear Further evaluation with endoscopy is recommended. 6. Thickening involving the salazar of the duodenum and proximal jejunum which may be related to portal hypertension and venous congestion. However, enteritis is a possibility. 7. Thickening involving the cecum and proximal ascending colon. This could be related to colitis. Thi s was not appreciated on prior exam. Colonoscopy is suggested for further evaluation. 8. Right inguinal hernia which is larger in size compared to prior exam and does contain fluid. Small fluid containing umbilical hernia is present. 9. Right inguinal lymphadenopathy. 10. Increase in ascites with resolution of right pleural effusion.
[2020-05-31] MEDS ORDERED: Fentanyl 100 MCG/2 ML VIAL ONE ×2 (15:10→16:42)
--- NOTE | 2020-05-31 15:30 | ULT ---
RIGHT UPPER QUADRANT ULTRASOUND: Date: 05/31/2020 INDICATION: Abdominal pain. FINDINGS: Gallbladder is distended and corresponds to the findings on CT earlier today. A tiny hyperechoic focu s in the fundus is seen. This is nonmobile but may represent a small adherent gallstone. Mild pericho lecystic edema which is probably secondary to the ascites. Abdominal ascites is noted as seen on CT. The liver is very heterogeneous consistent with the CT findings. Pancreas is obscured. See CT for klein creatic evaluation. Right kidney unremarkable. Common bile duct normal caliber. IMPRESSION: 1. Distended gallbladder with thickened wall probably secondary to the ascites. At least one tiny ec hogenic focus is seen in the gallbladder suggesting a small adherent gallstone. 2. The liver is very heterogeneous, corresponding to CT findings. POS: AGW
[2020-05-31] MEDS ORDERED: Albumin 25% 25 GM/100 ML BOT IVPB SCH (16:30)
[2020-05-31] MEDS ORDERED: Sodium Chloride 0.9% 1,000 ML IV SCH ×5 (18:00→21:45)
[2020-05-31] MEDS ORDERED: Senokot S 8.6-50 MG TAB PO PRN (18:03)
[2020-05-31] MEDS ORDERED: Ondansetron PF 4 MG/2 ML Vial IVP PRN (18:03)
[2020-05-31] MEDS ORDERED: Ondansetron ODT 4 MG TAB PO PRN (18:03)
[2020-05-31] MEDS ORDERED: Acetaminophen 650 MG Suppository PR PRN (18:03)
[2020-05-31] MEDS ORDERED: Guaifenesin DM 100-10/5 ML UDCUP PO PRN (18:03)
[2020-05-31 18:35] LABS: Actual Bicarbonate (HCO3a) 16.9 mEq/L (22-28); Analyzer IN Cardio ER; Base Excess (BEa) -7.4 mEq/L (-2.0 to +3.0); CO2 Tension 30.2 mmHg (35.0-45.0); Calcium, Ionized (arterial) 1.03 mmol/L (1.12-1.30); Carboxyhemoglobin (COHb) 0.3 gm% (0.0-3.0); Hemoglobin (Hb) 10.4 g/dL (14.0-18.0); O2 Tension (PaO2), arterial 77.1 mmHg (80.0-100.0); Potassium - ABG Lab 3.52 mmol/L (3.70-5.30); pH, Arterial 7.37 (7.35-7.45)
[2020-05-31 18:38] LABS: Puncture Site LRA
[2020-05-31] MEDS ORDERED: Cefepime 2 GM in Sodium Chloride 0.9% 100 ML IVPB SCH (18:45)
[2020-05-31] MEDS ORDERED: Vancomycin 1 GM in Premix Bag 1 BAG IVPB SCH (18:45)
[2020-05-31 19:53] VITALS: BMI 22.6
[2020-05-31] MEDS: Acetaminophen 325 MG TAB PO PRN (20:27)
[2020-05-31] MEDS: Vancomycin 1 GM in Premix Bag 1 BAG IVPB SCH (20:29)
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
[2020-05-31 20:51] LABS: Lactic Acid 11.5 mmol/L (0.5-2.2)
[2020-05-31] MEDS: metroNIDAZOLE 500 MG in Premix Bag 1 BAG IVPB SCH (22:12)
[2020-05-31] MEDS ORDERED: Fentanyl 250 MCG/5 ML VIAL ONE (22:14)
[2020-05-31] MEDS ORDERED: Phenylephrine 10 MG/ML VIAL ONE ×2 (22:15→23:41)
--- NOTE | 2020-05-31 22:19 | CT ---
Exam: Left lower extremity CT with contrast HISTORY: Left thigh abscess. Evaluate for necrotizing infection. FINDINGS: Visualized lower pelvis demonstrates fluid. Contrast opacifies the bladder. Visualized osseous structures do not demonstrate any erosive or destructive changes. There is no evid ence of osteomyelitis in the left hemipelvis or left femur. There is induration and edema involving the anterior and medial left lower extremity starting at the level of the left groin and extending to the distal femoral metaphysis. At the level of the knee, there does not appear to be any obvious inflammatory change. No obvious inflammatory changes at the l evel of tibial plateau. With regards the edematous changes, they appear to be confined to the subcutaneous fat. There does not appear to be a definite abscess. There does appear to be a blister i nvolving the left lower extremity at the level of the mid diaphysis (image 120, series 2). There is edema tracking along the layers of the subcutaneous fat. There does appear to be asymmetric edema inv olving the medial musculature of the left lower extremity. There is no evidence of an extramuscular or intramuscular abscess. Left inguinal canal is grossly unremarkable. There is a right-sided inguinal hernia containing ascite s. The visualized left and right lower extremity vasculature are patent. IMPRESSION: Infectious/inflammatory changes involving the left lower extremity soft tissues as described above. Findings were reviewed in conjunction with Dr. Núñez on 05/31/2020 10:18 PM. Angélica RUSSELL. Transcribed Date/Time: 06/01/2020 5:03 PM
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
[2020-05-31] MEDS ORDERED: Bupivacaine/Epinephrine 0.25% 30 ML VIAL ONE (23:12)
[2020-05-31] MEDS ORDERED: Norepinephrine 4 MG/4 ML VIAL ONE (23:58)
[2020-06-01] MEDS ORDERED: Sodium Chloride 0.9% 30 ML ONE (00:01)
[2020-06-01] MEDS ORDERED: Ondansetron HCl/PF 4 MG/2 ML Vial IVP PRN (00:25)
[2020-06-01] MEDS ORDERED: Promethazine HCl 25 MG/ML VIAL IM PRN (00:25)
[2020-06-01] MEDS ORDERED: HYDROmorphone 2 MG/ML VIAL SLOW IVP PRN (00:25)
[2020-06-01] MEDS ORDERED: Promethazine HCl 25 MG/ML VIAL SLOW IVP PRN (00:25)
[2020-06-01] MEDS ORDERED: Midazolam HCl 2 mg/2 ml Vial ONE (00:30)
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
[2020-06-01] MEDS ORDERED: Adenosine 6 MG/2 ML VIAL ONE (01:29)
[2020-06-01] MEDS ORDERED: Sodium Bicarb 50 MEQ/50 ML Abboject 8.4% SYRINGE ONE ×2 (03:28→03:31)
[2020-06-01] MEDS: Cefepime 2 GM in Sodium Chloride 0.9% 100 ML IVPB SCH ×3 (06:05→23:55)
[2020-06-01] MEDS: metroNIDAZOLE 500 MG in Premix Bag 1 BAG IVPB SCH ×4 (06:05→21:16)
[2020-06-01] MEDS: Dextrose 5 % And 0.9 % NaCl 1,000 ML IV SCH ×3 (06:10→19:23)
[2020-06-01] MEDS ORDERED: Adenosine 6 MG/2 ML VIAL IVP PRN (06:29)
[2020-06-01] MEDS ORDERED: Midazolam HCl 2 mg/2 ml Vial SLOW IVP SCH (06:30)
[2020-06-01] MEDS ORDERED: Dextrose 50% Abboject 50 ML SYRINGE SLOW IVP SCH (06:30)
[2020-06-01] MEDS ORDERED: Sodium Chloride 0.9% 1,000 ML IV SCH ×3 (06:30→19:00)
[2020-06-01] MEDS ORDERED: Sodium Bicarb 50 MEQ/50 ML Abboject 8.4% SYRINGE IVP SCH ×2 (06:30)
[2020-06-01] MEDS ORDERED: Propofol 1,000 MG/100 ML VIAL IV PRN (06:45)
[2020-06-01] MEDS ORDERED: Propofol BOLUS 1,000 MG/100 ML VIAL IV PRN (06:45)
[2020-06-01] MEDS ORDERED: fentaNYL Citrate/PF 2,000 MCG in Sodium Chloride 0.9% 60 ML IV SCH (06:45)
[2020-06-01] MEDS ORDERED: Fentanyl BOLUS 250 ML IVPB PRN (06:45)
[2020-06-01] MEDS ORDERED: Norepinephrine 8 MG/0.9% NS 250 ML IVPB SCH (06:45)
[2020-06-01] MEDS ORDERED: Morphine 2 MG/ML VIAL SLOW IVP PRN (06:45)
[2020-06-01] MEDS ORDERED: Lorazepam 2 MG/ML VIAL SLOW IVP PRN ×2 (06:45→07:27)
[2020-06-01 07:20] LABS: Anion Gap 21 mmol/L (10-20); BUN (Urea Nitrogen) 33 mg/dL (8.9-20.6); Calc. Creatinine Clearance 46 mL/min (70-130); Carbon Dioxide 21 mmol/L (22-29); Chloride 103 mmol/L (98-107); Estimated GFR-MDRD 32; Potassium 3.8 mmol/L (3.5-5.1); Sodium 141 mmol/L (136-145)
[2020-06-01 07:22] LABS: Hemoglobin 9.1 g/dL (14.0-18.0); Mean Corpuscular HGB CONC 32.7 g/dL (32.0-36.0); Mean Platelet Volume 9.3 fL (7.4-10.4); Platelet Count 63 thou/uL (130-400); RBC Distribution Width 13.9 % (11.5-14.5); Red Blood Cell (RBC) Count 2.53 mill/uL (4.70-6.10); White Blood Cell (WBC) Count 5.7 thou/uL (4.8-10.8)
[2020-06-01 07:23] LABS: Calcium 6.4 mg/dL (7.8-10.44); Glucose 26 mg/dL (70-105)
[2020-06-01] MEDS ORDERED: Thiamine HCl 200 MG/2 ML VIAL IM SCH (07:30)
[2020-06-01] MEDS: Sodium Bicarb 50 MEQ/50 ML Abboject 8.4% SYRINGE ONE (07:34)
[2020-06-01] MEDS: Dextrose 50% Abboject 50 ML SYRINGE ONE (07:34)
[2020-06-01] MEDS: Propofol 1,000 MG/100 ML VIAL IV ONE (07:34)
[2020-06-01] MEDS: Adenosine 6 MG/2 ML VIAL IVP SCH ×2 (07:35→18:42)
[2020-06-01 07:51] LABS: Band 34 % (5-11); Crenated RBC SLIGHT = 1-5 cells (100X) (None Seen); Lymphocytes 5 % (21-51); MDiff Complete? YES; Metamyelocyte 4 % (0-0); Monocytes 12 % (0-10); Neutrophil 45 % (42-75); Platelet Morphology Comment Appears Decreased; Toxic Granulation MODERATE; Vacuoles MODERATE
[2020-06-01] MEDS ORDERED: DC Sedation Protocol FS ONE (08:10)
--- NOTE | 2020-06-01 08:18 | RAD ---
CHEST 1 VIEW: Date: 06/01/2020 INDICATION: Post central line placement. COMPARISON: Prior exam dated 05/31/2020. FINDINGS: There is cardiomegaly, pulmonary vascular congestion, and perihilar air space opacities. The patient is intubated with gastric catheter placement. Left subclavian central venous catheter in place with t ip in the region of the right atrium. No pneumothorax is evident. IMPRESSION: 1. Findings of cardiomegaly and pulmonary vascular congestion and perihilar edema, suspicious for vo lume overload. 2. Tubes and lines as above. 3. No pneumothorax. POS: BH
[2020-06-01] MEDS ORDERED: FLU VACC QS2020-21(6MOS UP)/PF 60 MCG/0.5 ML SYRINGE IM ONE (09:00)
--- NOTE | 2020-06-01 09:00 | CON ---
DATE OF CONSULTATION: 06/01/2020 REASON FOR CONSULTATION: The patient was left intubated after an operation last night. HISTORY OF PRESENT ILLNESS: I found this patient intubated in the ICU on rounds this morning. Nursing staff did not know who was managing the ventilator, so I decided to take charge. There is absolutely no documentation in the chart as to what happened last night, but it looks like he was taken to the operating room for exploration of the wound/abscess in the left leg. He looks stable on mechanical ventilation and looks suitable for extubation. He was originally admitted to the hospital yesterday evening by the hospitalist group with nausea, vomiting, and abdominal pain. He has cirrhosis, some ascites, but the most concerning problem was his left leg. PAST MEDICAL HISTORY: 1. Alcoholic cirrhosis. 2. Portal hypertension. 3. Cellulitis. 4. 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 SOCIAL HISTORY: Smokes a pack or two a day. Last drank alcohol was 2 weeks ago. He lives in the [facility] in [place]. He has previous history of cocaine and marijuana abuse. FAMILY MEDICAL HISTORY: Remarkable for coronary artery disease. ALLERGIES: NONE. MEDICATIONS: Prior to admission, none. Current inpatient medications reviewed, see chart. PHYSICAL EXAMINATION: VITAL SIGNS: Heart rate 124, blood pressure 109/52, O2 saturation 100%, and respiratory rate 21. GENERAL: The patient is now extubated, awake, in no distress. HEENT: Unremarkable. NECK: No adenopathy or JVD. LUNGS: Clear. CARDIAC: S1 and S2. Slightly tachycardic. ABDOMEN: Slightly distended. EXTREMITIES: No clubbing or cyanosis. He has right foot amputation. He has a surgical wound packed in the left upper leg. LABORATORY DATA: White blood cell count 5.7, hematocrit 27.9, and platelet count 63 with 45% neutrophils and 34% bands. INR is 2.3. ABG: PH of 7.37, pCO2 of 30, and pO2 of 77. Sodium 141, potassium 3.8, chloride 103, CO2 of 21, BUN 33, creatinine 2.2, glucose 62, and lactate 11.5. Micro cultures were pending. ASSESSMENT: 1. Septic shock secondary to leg infection. 2. Patient left intubated after surgery. 3. Ascites. 4. Cirrhosis. 5. Anemia. 6. Thrombocytopenia. PLAN: 1. The patient will be extubated. 2. Continue antibiotics. 3. Wean Levophed as tolerated. 4. Needs intravenous thiamine in intermittently. Job ID: [id number]
[2020-06-01] MEDS: Folic Acid 1 MG TAB PO SCH (09:05)
[2020-06-01] MEDS: Multivitamin W/ Minerals 1 TAB PO SCH (09:05)
[2020-06-01] MEDS: Vancomycin 1 GM in Premix Bag 1 BAG IVPB SCH ×2 (09:11→20:05)
[2020-06-01] MEDS ORDERED: cefTRIAXone\\ROCEPHIN 2 GM in Sodium Chloride 0.9% 100 ML IVPB SCH (11:00)
[2020-06-01] MEDS ORDERED: CEFEPIME IVPB PRN (11:33)
[2020-06-01 12:43] LABS: SARS-CoV-2 MS2 Positive; SARS-CoV-2 N Gene Negative; SARS-CoV-2 S Gene Negative; SARS-CoV-2 by NAA Not Detected (NotDetected); SARS-CoV-2 orf1ab Negative
[2020-06-01] MEDS: Acetaminophen 325 MG TAB PO PRN (16:33)
[2020-06-01] MEDS: Norepinephrine 8 MG/0.9% NS 250 ML IVPB SCH (17:34)
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
[2020-06-01] MEDS ORDERED: Adenosine 6 MG/2 ML VIAL IVP SCH ×2 (18:45)
--- NOTE | 2020-06-01 19:01 | PRG ---
DATE OF SERVICE: 06/01/2020 REASON FOR CONSULTATION: Cirrhosis/decompensated liver disease, abnormal GI imaging. SUBJECTIVE: Overnight, the patient was taken emergently to the OR for irrigation and drainage of the left lower extremity infection by Dr. Núñez with iodine packing noted on physical examination today. Since the surgery last night, the patient notes that his abdominal pain and his lower extremity pain has improved significantly to the point where he has almost no pain today. He did complain of some increased heartburn/substernal pyrosis with ingestion of orange juice this morning, but otherwise does not complain of any epigastric or abdominal pain as well. Currently, he denies any nausea, vomiting, fevers, chills, hematemesis, melena, or hematochezia. OBJECTIVE: VITAL SIGNS: Temperature 97.9, pulse 106, blood pressure 118/58, respiratory rate 26, saturating 94% on room air. GENERAL: The patient was lying in bed, in no acute distress. Alert and oriented x4. CARDIOVASCULAR: Tachycardic rate, but regular rhythm. RESPIRATORY: Clear to auscultation bilaterally. ABDOMEN: Normoactive bowel sounds. Soft, nontender. Mild to moderate abdominal distention with protruding umbilical hernia. EXTREMITIES: No cyanosis, clubbing, or edema. Dressings in the left lower extremity were clean, dry, and intact with significant amount of iodine in the dressings below. LABORATORY DATA: CBC with a white blood cell count of 5.7, hemoglobin 9.1, hematocrit 27.9, platelets 63. INR 2.3. Chemistry with a sodium 141, potassium 3.8, chloride 103, CO2 of 21, BUN 33, creatinine 2.25, glucose 26. Lactic acid 11.5. IMAGING DATA: The patient underwent CT scan of the left lower extremity, which showed infectious/inflammatory changes involving the left lower extremity with soft-tissue involvement/induration and edema from the level of the left groin and extending to the distal femoral metaphysis. ASSESSMENT AND PLAN: The patient is a 39-year-old male with past medical history of alcoholic cirrhosis complicated by ascites presenting with left lower extremity cellulitis. The cellulitis resulting in sepsis and hypotension concerning for necrotizing fasciitis. Alcoholic cirrhosis: The patient is presenting with a history of alcoholic cirrhosis with the diagnosis earlier this year and based on cirrhotic morphology on imaging, thrombocytopenia, splenomegaly, the presence of esophageal and splenic varices on imaging as well. Currently presenting with decompensated disease with the presence of ascites and elevated INR. However, the patient is also presenting with a concurrent left lower extremity infection, which could potentially affect the INR due to sepsis type picture. With the hypotension associated with the sepsis, it is also resulting in mild liver injury and at this point, creating mild transaminitis as well as increased bilirubin. At this time, the patient does have ascites on physical exam, but is not significantly distended and it is soft to palpation with the possibility of spontaneous bacterial peritonitis less likely. However, the patient has also been started on broad-spectrum antibiotics which would cover this as well. However, with the rastafari of ascites, increased fluid administration as part of treatment for his sepsis may potentially contribute to worsening of his ascites and he may require paracentesis here in the near future. Recommendations: 1. We would continue to trend his LFTs and INR daily for signs of liver inflammation or liver dysfunction. 2. We would continue to monitor the patient's IV fluid intake and possible paracentesis for therapeutic purposes and/or evaluation of possible spontaneous bacterial peritonitis. 3. We would continue to monitor the patient clinically for signs of encephalopathy, which can be a harbinger of worsening liver failure. 4. We would hold any diuretic therapy at this time given his significant hypotension associated with sepsis. Abnormal GI imaging/epigastric pain: The patient initially presented with increased epigastric pain in addition to abnormal GI imaging showing thickening of the distal esophagus as well as certain elements of the small bowel and colon. In relation to the thickening of the small bowel and colon, this seems to be more related to ascites and edema associated with formation of ascites. However, the thickening of the distal esophagus also seems to be more related to acid reflux, especially when the patient experienced substernal pyrosis with ingestion of more acidic/citrus type drinks. However, other than the episode of substernal pyrosis this morning, he has not had any further episodes of abdominal pain or epigastric pain for that matter. Recommendations: 1. We would continue the patient on famotidine 20 mg b.i.d. in light of probable acid reflux contributing to the distal esophageal thickening. 2. We would maintain strict anti-reflux precautions while inpatient. We will continue to follow. Please call with any questions. Job ID: [id number]
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
[2020-06-01] MEDS: Sodium Chloride 0.9% 1,000 ML IV SCH (19:21)
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
[2020-06-01] MEDS: Diltiazem 125 MG in Sodium Chloride 0.9% 100 ML IVPB SCH (19:45)
[2020-06-01] MEDS: Famotidine 20 MG TAB PO SCH (20:06)
[2020-06-01 20:18] LABS: Magnesium 1.3 mg/dL (1.6-2.6); Phosphorus 2.8 mg/dL (2.3-4.7)
[2020-06-01] MEDS ORDERED: Famotidine/PF 20 mg/2ml Vial SLOW IVP SCH (21:00)
[2020-06-01] MEDS ORDERED: Albumin 25% 25 GM/100 ML BOT IVPB SCH (21:00)
[2020-06-01] MEDS ORDERED: Magnesium Sulfate 4 GM in Sodium Chloride 0.9% 250 ML 250 ML IVPB SCH (21:00)
[2020-06-01] MEDS ORDERED: Calcium Gluconate 9.2 MEQ in Sodium Chloride 0.9% 100 ML IVPB SCH (21:13)
--- NOTE | 2020-06-01 21:16 | RAD ---
Exam: Chest one view HISTORY:Tachypnea. Sepsis. Comparison: 06/01/2020 at 1:22 AM FINDINGS: Cardiac silhouette:Cardiomegaly. Lines and tubes: Interval movable of endotracheal and nasogastric tube. Stable left-sided vascular ca theter. Aorta: Unremarkable Pulmonary vessels: Normal Costophrenic angles: Clear LUNGS: Worsening interstitial and alveolar opacities. Pneumothorax: None Osseous abnormalities: None IMPRESSION: Worsening interstitial and alveolar pneumonia.
[2020-06-01 21:22] LABS: Lactic Acid 8.9 mmol/L (0.5-2.2)
--- NOTE | 2020-06-01 23:31 | PRG ---
DATE OF SERVICE: 06/01/2020 Mr. Alvarado was evaluated multiple times through the night and morning. After he recovered from his emergency surgery for necrotizing fasciitis, he had persistent hypotension postoperatively requiring Levophed support of his blood pressure and was oliguric, requiring multiple fluid boluses. He had acidosis which was treated with bicarbonate, and hypocalcemia, which was treated with calcium gluconate. He also had hypoglycemia likely due to his cirrhosis in fasting state, treated with D50 and maintenance fluids were changed to D5 normal saline and scheduled fingersticks were ordered. He was extubated this morning by Pulmonology and had significant decrease in the pain and tenderness in the leg surrounding his debridement site. There is still some edema in the leg and tenderness at the operative site, but no tenderness extending beyond this, so the decision has been made to take him back to the operating room tomorrow for repeat debridement. His BUN and creatinine have gone up, but his urine output has improved and Nephrology and Infectious Disease has seen the patient and made recommendations. He appears to be on appropriate antibiotics pending his culture results. I will plan to place an irrigating VAC dressing after his operation tomorrow. I discussed his medical condition and the plan of care with the patient and also with his sister who is his medical power of assistant prosecuting attorney. Job ID: [id number] MTDD
[2020-06-01] MEDS ORDERED: Melatonin 3 MG TAB PO PRN (23:59)
--- NOTE | 2020-06-02 01:30 | OP ---
DATE OF PROCEDURE: 05/31/2020 PROCEDURE: Debridement of necrotizing fasciitis of the left leg. PREOPERATIVE DIAGNOSIS: Necrotizing fasciitis of the left thigh. POSTOPERATIVE DIAGNOSIS: Necrotizing fasciitis of the left thigh. HISTORY: Mr. Alvarado is a 39-year-old cirrhotic, who presented to the hospital with signs of sepsis. He was suspected to have possible colitis versus spontaneous bacterial peritonitis, so GI was consulted, but the appraiser personal property became concerned that he could have necrotizing fasciitis based on physical examination of the left thigh and General Surgery was consulted. Physical examination was extremely concerning for this process and recommendation was made to proceed emergently to the operating room. He had some pain in his left calf and ankle as well, but CT of the leg did not show any obvious abnormalities in that region, although only the upper calf was imaged. DESCRIPTION OF PROCEDURE: After informed consent was obtained and appropriate preoperative antibiotics continued, the patient was taken to the operating room. He was placed in a supine position, and general endotracheal anesthesia was administered. He was prepped and draped in standard sterile fashion including the entire leg circumferentially up to the groin and lower abdomen. The skin was incised through the most discolored blistered area and the skin and subcutaneous tissue were noted to be necrotic. This necrosis extended down to the fascia of the muscle, which was nonadherent to the underlying muscle. The underlying muscle appeared healthy. With cutting of the necrotic tissue, there was pale brownish fluid released but no sreekanth purulence. Some of this fluid was sent for culture. No significant odor. All of the necrotic tissue was sharply excised back to bleeding and viable tissue circumferentially. The femoral vessels were not exposed, covered with a rather thin layer of subcutaneous fat only. The posterior skin was somewhat questionable but potentially viable, so the subcutaneous tissue and fascia were debrided, but the skin was left in place. However, 15 x 25 cm of skin was frankly necrotic and had to be excised. The underlying tissues were debrided back to viable appearing tissues and tissue cultures were sent for Gram stain and culture. The wound was copiously irrigated and examined for hemostasis and viability. As previously stated, the posterior skin of the thigh was somewhat questionable in terms of its viability, but it did not appear necrotic or infected. The wound was packed with Betadine-soaked Kerlix sponges. Two Betadine Kerlix were used to fill the wound. ABD dressings were then placed over this and the leg was wrapped with Kerlix and an Octavio wrap. 8 cm of undermining posteriorly was created for a total wound size of 23 x 25 cm with a skin defect of 15 x 25 cm. Job ID: [id number]
[2020-06-02] MEDS ORDERED: Furosemide 40 MG/4 ML VIAL SLOW IVP SCH (02:15)
[2020-06-02] MEDS: Dextrose 5 % And 0.9 % NaCl 1,000 ML IV SCH (02:56)
[2020-06-02] MEDS: Sodium Chloride 0.9% 1,000 ML IV SCH (02:57)
[2020-06-02] MEDS: metroNIDAZOLE 500 MG in Premix Bag 1 BAG IVPB SCH ×2 (03:05→10:03)
[2020-06-02] MEDS: Diltiazem 125 MG in Sodium Chloride 0.9% 100 ML IVPB SCH (05:34)
[2020-06-02 05:54] LABS: Prothrombin Time 60.9 sec (12.0-14.7)
[2020-06-02 06:03] LABS: INR-International Normal Ratio 7.2
[2020-06-02 06:13] LABS: Hemoglobin 9.3 g/dL (14.0-18.0); Mean Corpuscular HGB CONC 33.1 g/dL (32.0-36.0); Mean Corpuscular Hemoglobin 37.1 pg (27.0-31.0); Mean Platelet Volume 9.2 fL (7.4-10.4); Platelet Count 76 thou/uL (130-400); RBC Distribution Width 14.3 % (11.5-14.5); White Blood Cell (WBC) Count 19.2 thou/uL (4.8-10.8)
[2020-06-02 06:14] LABS: Band 42 % (5-11); Burr Cells SLIGHT = 2-5 cells (100X) (0-1/hpf); Lymphocytes 8 % (21-51); MDiff Complete? YES; Metamyelocyte 3 % (0-0); Monocytes 11 % (0-10); Neutrophil 36 % (42-75); Nucleated RBC 1 % (0); Platelet Morphology Comment Appears Decreased; Toxic Granulation SLIGHT
[2020-06-02 06:18] LABS: ALT (SGPT) 61 U/L (8-55); AST (SGOT) 324 U/L (5-34); Albumin 2.3 g/dL (3.5-5.0); Alkaline Phosphatase 70 U/L (40-110); Anion Gap 18 mmol/L (10-20); BUN (Urea Nitrogen) 39 mg/dL (8.9-20.6); Bilirubin, Total 4.3 mg/dL (0.2-1.2); Calc. Creatinine Clearance 28 mL/min (70-130); Calcium 6.3 mg/dL (7.8-10.44); Carbon Dioxide 17 mmol/L (22-29); Chloride 104 mmol/L (98-107); Estimated GFR-MDRD 18; Globulin 3.3 g/dL (2.4-3.5); Glucose 39 mg/dL (70-105); Lactic Acid 9.6 mmol/L (0.5-2.2); Potassium 4.6 mmol/L (3.5-5.1); Protein, Total 5.6 g/dL (6.0-8.3); Sodium 134 mmol/L (136-145)
[2020-06-02 06:30] LABS: Actual Bicarbonate (HCO3a) 15.8 mEq/L (22-28); Base Excess (BEa) -12.1 mEq/L (-2.0 to +3.0); CO2 Tension 44.4 mmHg (35.0-45.0); Calcium, Ionized (arterial) 0.88 mmol/L (1.12-1.30); Carboxyhemoglobin (COHb) 0.3 gm% (0.0-3.0); Hemoglobin (Hb) 9.5 g/dL (14.0-18.0); Potassium - ABG Lab 4.42 mmol/L (3.70-5.30)
[2020-06-02] MEDS: Norepinephrine 8 MG/0.9% NS 250 ML IVPB SCH ×3 (06:32→21:13)
[2020-06-02 06:37] LABS: O2 Tension (PaO2), arterial 56.3 mmHg (80.0-100.0); Puncture Site LRA; pH, Arterial 7.17 (7.35-7.45)
[2020-06-02] MEDS ORDERED: Sodium Bicarb 50 MEQ/50 ML Abboject 8.4% SYRINGE ONE ×3 (06:38→12:10)
[2020-06-02] MEDS ORDERED: Midazolam HCl 2 mg/2 ml Vial ONE (06:58)
[2020-06-02] MEDS: Sodium Bicarb 50 MEQ/50 ML Abboject 8.4% SYRINGE ONE (07:08)
[2020-06-02] MEDS ORDERED: Ventilator Sedation Protocol 1 EACH FS ONE (07:16)
--- NOTE | 2020-06-02 07:28 | OP ---
DATE OF PROCEDURE: 06/02/2020 PROCEDURE: Endotracheal intubation. DIAGNOSES: Metabolic acidosis, respiratory failure, necrotizing fasciitis, acute respiratory failure. DESCRIPTION OF PROCEDURE: The patient was placed in a supine position. Was given 2 mg of Versed IV. I intubated him on the first attempt with a GlideScope with a 7.5 endotracheal tube. The tube was secured at 22 cm at the lip. Patient was placed on mechanical ventilation. Job ID: [id number]
[2020-06-02] MEDS ORDERED: Midazolam HCl 2 mg/2 ml Vial SLOW IVP SCH (07:30)
[2020-06-02] MEDS ORDERED: Propofol 1,000 MG/100 ML VIAL IV ONE (07:30)
[2020-06-02] MEDS ORDERED: Succinylcholine Chloride 200 MG/10 ML VIAL IVP SCH (07:30)
[2020-06-02 07:43] LABS: Vancomycin, Trough 34.2 ug/mL
[2020-06-02] MEDS: Sodium Bicarbonate 140 MEQ in Dextrose 5% in Water 1,000 ML IV SCH ×2 (07:58→22:34)
[2020-06-02] MEDS: Famotidine 20 MG TAB PO SCH (08:15)
[2020-06-02] MEDS: Sodium Bicarb 50 MEQ/50 ML Abboject 8.4% SYRINGE IVP SCH ×3 (08:15→12:20)
[2020-06-02] MEDS: Magnesium Oxide 400 MG TAB PO SCH (08:16)
[2020-06-02] MEDS: Folic Acid 1 MG TAB PO SCH (08:16)
[2020-06-02] MEDS: Multivitamin W/ Minerals 1 TAB PO SCH (08:16)
[2020-06-02] MEDS ORDERED: Phytonadione 10 MG/ML AMP PO SCH (09:00)
[2020-06-02] MEDS ORDERED: Thiamine 100 MG TAB PO SCH (09:00)
[2020-06-02 09:16] LABS: Actual Bicarbonate (HCO3a) 14.5 mEq/L (22-28); Base Excess (BEa) -13.6 mEq/L (-2.0 to +3.0); CO2 Tension 42.6 mmHg (35.0-45.0); Calcium, Ionized (arterial) 0.88 mmol/L (1.12-1.30); Carboxyhemoglobin (COHb) 0.3 gm% (0.0-3.0); O2 Tension (PaO2), arterial 73.3 mmHg (80.0-100.0); Potassium - ABG Lab 4.44 mmol/L (3.70-5.30)
[2020-06-02 09:19] LABS: Puncture Site RRA; pH, Arterial 7.15 (7.35-7.45)
--- NOTE | 2020-06-02 09:45 | PRG ---
DATE OF SERVICE: 06/02/2020 SUBJECTIVE: Progressively metabolic acidosis, respiratory failure, was intubated this morning. He is to go to surgery for debridement of his necrotizing fasciitis. OBJECTIVE: VITAL SIGNS: He is on Levophed at 10 mcg with a systolic blood pressure of 100, pulse 80, saturations are 99%, respirations 22. CHEST: Extensive rhonchi and crackles. CARDIAC: Normal S1, S2. No gallops. ABDOMEN: No masses. LABORATORY DATA: White count 72670, H and H are 9 and 28, platelet count is 76, big left shift. PO2 was 56, pCO2 was 44, prior to his intubation with BUN and creatinine of 39 and 3.6, glucose 39. Lactic acid is elevated. Vancomycin was 34. IMPRESSION: Respiratory failure, alcoholic liver disease, aspiration pneumonia, severe thrombocytopenia, apparently necrotizing fasciitis. PLAN: He is to continue present antibiotic. I have added clindamycin as an antitoxin medication and stress dose of steroids will be initiated. He probably needs nutrition in the next 24 to 48 hours. We will continue to monitor and follow. One-half hour of critical care time. Job ID: [id number]
[2020-06-02] MEDS ORDERED: Morphine 2 MG/ML VIAL SLOW IVP PRN (10:00)
[2020-06-02] MEDS ORDERED: Fentanyl BOLUS 250 ML IVPB PRN (10:00)
[2020-06-02] MEDS ORDERED: Propofol 1,000 MG/100 ML VIAL IV PRN (10:00)
[2020-06-02] MEDS ORDERED: DISCONTINUE PREVIOUS NARCOTIC PAIN MEDICATIONS AND BENZODIAZEPINES FS SCH (10:00)
[2020-06-02] MEDS ORDERED: Propofol BOLUS 1,000 MG/100 ML VIAL IV PRN (10:00)
[2020-06-02] MEDS ORDERED: Lorazepam 2 MG/ML VIAL SLOW IVP PRN (10:00)
[2020-06-02] MEDS: Propofol 1,000 MG/100 ML VIAL IV ONE (10:02)
--- NOTE | 2020-06-02 10:02 | PDOC.GSPN ---
Surgery Progress Note: Subj - Subjective Narrative: Mr. Alvarado looks much worse today. He apparently took a turn for the worse in the evening. He went into SVT and was very tachycardic. Adenosine was ineffective so he was started on Cardizem. He became anuric as well and has remained anuric through the night. His Levophed is at twice the right that was yesterday morning to maintain his blood pressure and he had to be reintubated this morning. His chest x-ray shows bilateral infiltrates and fluid overload. His labs look worse also. His white count is up. His hemoglobin and hematocrit are stable but his INR is much higher at 7 and his platelets remain low. He has an OG tube in place and there is no blood in the tubing. His lactate is still high. According to his nurse he had no complaints of abdominal pain and his belly is still soft. He is heavily sedated but still responsive and tried to self extubate during his echocardiogram earlier. BUN and creatinine are rising as well. His leg is little more edematous but otherwise unchanged. Assessment/plan: Critically ill patient with necrotizing fasciitis of the left thigh, now with multiorgan system failure and decompensated cirrhosis with coagulopathy and anuric renal failure and respiratory failure. He is on broad- spectrum antibiotics for his necrotizing fasciitis and will be taken back to the operating room today for reexamination and perhaps further debridement. He is going to need dialysis but may not tolerate this. I am very hesitant to place a femoral catheter in the opposite groin given his necrotizing soft tissue infecti on in his lower extremity. He is at increased risk of bleeding due to his coagulopathy but I think overall placement of a tunneled dialysis catheter would likely be in his best interest. I have ordered some FFP for the OR. Have discussed his case with Dr. Baker of nephrology who agrees that he needs a dialysis catheter but does not think that he is likely to tolerate dialysis. He is going to recommend transfer to another facility for possible CVVHD which we cannot perform here. Unfortunately his prognosis is extremely poor and he may not survive this illness. I am going to try to contact his sister who is his medical power of state's attorney to discuss the situation with her. Surgery Progress Note: Obj - Vital signs Vital signs: Vital Signs - Most Recent Temp Pulse Resp BP Pulse Ox 97.5 F L 80 120/42 L 97 06/02/20 07:00 06/02/20 07:17 06/02/20 07:17 06/02/20 04:00 Surgery Progress Note: Results - Labs Result Diagrams: 06/02/20 05:39 06/02/20 05:39 Lab results: Laboratory Results - last 12 hr 06/02/20 06/02/20 06/02/20 00:22 05:39 05:39 WBC RBC Hgb Hct MCV MCH MCHC RDW Plt Count MPV Neutrophils % (Manual) Band Neuts % (Manual) Lymphocytes % (Manual) Monocytes % (Manual) Metamyelocytes % (Man) Nucleated RBCs # (Man) Toxic Granulation Plt Morphology Comment Ulises Cells PT INR Specimen Type Puncture Site Bicarbonate Actual ABG pH ABG pCO2 ABG pO2 ABG O2 Sat (Measured) ABG O2 Content ABG Base Excess ABG Hematocrit ABG Hemoglobin ABG Oxyhemoglobin ABG Carboxyhemoglobin ABG Methemoglobin ABG Deoxyhemoglobin Eldon Test A-a O2 Gradient Ionized Calcium Mode of Support Mechanical Rate Inspired O2 Tidal Volume Pressure Support PEEP or CPAP Sodium 134 L Potassium 4.6 Chloride 104 Carbon Dioxide 17 L Anion Gap 18 BUN 39 H Creatinine 3.69 H Estimated GFR (MDRD) 18 Glucose 39 L* POC Glucose 89 Lactic Acid 9.6 H* Calcium 6.3 L Total Bilirubin 4.3 H AST 324 H ALT 61 H Alkaline Phosphatase 70 Serum Total Protein 5.6 L Albumin 2.3 L Globulin 3.3 Albumin/Globulin Ratio 0.7 L Cortisol Vancomycin Trough 06/02/20 06/02/20 06/02/20 05:39 05:39 06:30 WBC 19.2 H RBC 2.50 L Hgb 9.3 L Hct 28.0 L MCV 112.0 H MCH 37.1 H MCHC 33.1 RDW 14.3 Plt Count 76 L MPV 9.2 Neutrophils % (Manual) 36 L Band Neuts % (Manual) 42 H Lymphocytes % (Manual) 8 L Monocytes % (Manual) 11 H Metamyelocytes % (Man) 3 H Nucleated RBCs # (Man) 1 H Toxic Granulation SLIGHT Plt Morphology Comment Appears Decreased L Ulises Cells SLIGHT = 2-5 cells PT 60.9 H INR 7.2 H* Specimen Type ARTERIAL Puncture Site LRA Bicarbonate Actual 15.8 L ABG pH 7.17 L* ABG pCO2 44.4 ABG pO2 56.3 L* ABG O2 Sat (Measured) 84.4 L* ABG O2 Content 11.3 L ABG Base Excess -12.1 L ABG Hematocrit 28.0 L ABG Hemoglobin 9.5 L ABG Oxyhemoglobin 83.9 L ABG Carboxyhemoglobin 0.3 ABG Methemoglobin 0.30 ABG Deoxyhemoglobin 15.5 H Eldon Test POSITIVE A-a O2 Gradient 316.000 H Ionized Calcium 0.88 L Mode of Support BIPAP Mechanical Rate Inspired O2 60 Tidal Volume Pressure Support PEEP or CPAP Sodium 131 L Potassium 4.42 Chloride 105 Carbon Dioxide Anion Gap BUN Creatinine Estimated GFR (MDRD) Glucose POC Glucose Lactic Acid Calcium Total Bilirubin AST ALT Alkaline Phosphatase Serum Total Protein Albumin Globulin Albumin/Globulin Ratio Cortisol Vancomycin Trough 06/02/20 06/02/20 06/02/20 07:12 08:57 09:15 WBC RBC Hgb Hct MCV MCH MCHC RDW Plt Count MPV Neutrophils % (Manual) Band Neuts % (Manual) Lymphocytes % (Manual) Monocytes % (Manual) Metamyelocytes % (Man) Nucleated RBCs # (Man) Toxic Granulation Plt Morphology Comment [place] Cells PT INR Specimen Type ARTERIAL Puncture Site RRA Bicarbonate Actual 14.5 L ABG pH 7.15 L* ABG pCO2 42.6 ABG pO2 73.3 L ABG O2 Sat (Measured) 91.8 L ABG O2 Content 12.9 L ABG Base Excess -13.6 L ABG Hematocrit 29.0 L ABG Hemoglobin 10.0 L ABG Oxyhemoglobin 91.2 L ABG Carboxyhemoglobin 0.3 ABG Methemoglobin 0.30 ABG Deoxyhemoglobin 8.2 H [place] Test POSITIVE A-a O2 Gradient 586.450 H Ionized Calcium 0.88 L Mode of Support SIMV Mechanical Rate 28 Inspired O2 100 Tidal Volume 500 Pressure Support 10 PEEP or CPAP 10.0 Sodium 134 L Potassium 4.44 Chloride 104 Carbon Dioxide Anion Gap BUN Creatinine Estimated GFR (MDRD) Glucose POC Glucose Lactic Acid Calcium Total Bilirubin AST ALT Alkaline Phosphatase Serum Total Protein Albumin Globulin Albumin/Globulin Ratio Cortisol 25.60 Vancomycin Trough 34.2 H*
[2020-06-02] MEDS: Cefepime 2 GM in Sodium Chloride 0.9% 100 ML IVPB SCH (10:03)
[2020-06-02] MEDS ORDERED: Albumin 25% 25 GM/100 ML BOT IVPB ONE (10:31)
[2020-06-02] MEDS: Vancomycin 1 GM in Premix Bag 1 BAG IVPB SCH (11:01)
--- NOTE | 2020-06-02 11:04 | RAD ---
PORTABLE CHEST: HISTORY: Endotracheal tube placement. COMPARISON: Prior day's study. FINDINGS: Endotracheal and NG tubes are in satisfactory position. Left-sided central line unchanged in positio n. Parenchymal lung changes show increasing opacification of the right base. IMPRESSION: 1. Worsening parenchymal changes in the right lung base. 2. Endotracheal and nasogastric tubes in satisfactory position. POS: FREDY
[2020-06-02 11:20] VITALS: BP 84/30
[2020-06-02] MEDS ORDERED: Dextrose 50% Abboject 50 ML SYRINGE ONE ×2 (11:22→12:00)
--- NOTE | 2020-06-02 11:30 | PRG ---
DATE OF SERVICE: 06/02/2020 SUBJECTIVE: A 39-year-old gentleman, being seen for acute kidney injury. The patient is intubated and resting. PHYSICAL EXAMINATION: GENERAL: The patient is resting. VITAL SIGNS: Afebrile, pulse 80, breathing at 16, and blood pressure 107/41. HEENT: Head normocephalic and atraumatic. Eyes intact, no ulcers. Nose intact, no ulcers. Ears intact, no ulcers. Neck: Supple. No JVD. Chest: Symmetrical and clear. Cardiovascular: Shows S1 and S2, no rub, no murmur. Gastrointestinal: Abdomen is soft, bowel sounds positive. Extremities: Show no edema or ulcers. Skin: Shows no rash or petechiae. Musculoskeletal: Shows no joint swelling or stiffness. Genitourinary: Shows no Olson or CVA tenderness. Neurologic: Motor intact. Cranial nerves intact. LABORATORY DATA: Hemoglobin 9.3. Creatinine 3.69. ASSESSMENT: 1. Acute kidney injury with chronic kidney disease, progressive. The patient remains oliguric. Based on the patient's low blood pressure, he will need continuous venovenous hemodialysis at an outside facility if his blood pressure and other parameters and sepsis does not improve. Overall prognosis is poor. 2. Anemia, stable. 3. Metabolic acidosis. Continue bicarb replacement. No urgent indication for dialysis yet. Job ID: [id number]
[2020-06-02] MEDS: Vasopressin 20 UNIT, Admixture Fee 1 EACH in Sodium Chloride 0.9% 50 ML IV SCH ×2 (11:51→18:40)
[2020-06-02 12:00] LABS: Actual Bicarbonate (HCO3a) 14.7 mEq/L (22-28); Base Excess (BEa) -13.1 mEq/L (-2.0 to +3.0); CO2 Tension 42.4 mmHg (35.0-45.0); Calcium, Ionized (arterial) 0.86 mmol/L (1.12-1.30); Carboxyhemoglobin (COHb) 0.5 gm% (0.0-3.0); Hemoglobin (Hb) 8.8 g/dL (14.0-18.0); Potassium - ABG Lab 4.48 mmol/L (3.70-5.30)
[2020-06-02] MEDS ORDERED: Hydrocortisone Sod Succ/PF 250 mg/2 ml Vial SLOW IVP SCH (12:15)
--- NOTE | 2020-06-02 12:17 | RAD ---
RADIOGRAPH CHEST 1 VIEW: DATE: 06/02/2020 TIME: 12:10 PM HISTORY: 39-year-old male with ARDS COMPARISON: 06/02/2020 8:46 AM FINDINGS: Endotracheal tube, esophagogastric tube, and left subclavian central venous catheter, remain. Diffuse, severe airspace opacities (alveolar infiltrates/consolidations) bilaterally. Bilateral pleural effusions. No pneumothorax. No interval change overall. IMPRESSION: 1) severe bilateral infiltrates: acute respiratory distress syndrome versus severe bilateral pneumoni a versus severe bilateral pulmonary edema. 2) no interval change overall.
[2020-06-02] MEDS: Dextrose 50% Abboject 50 ML SYRINGE ONE (12:20)
--- NOTE | 2020-06-02 12:21 | PDOC.HOSPP ---
- Subjective Encounter Date: 06/02/20 Encounter Time: 12:00 Subjective: f/u for severe sepsis with shock due to necrotizing fasciitis s/p fasciotomy on Cefepime/Clindamycin/Metronidazole. Remains on Levophed and now Vasopressin Nursing [facility] 100%. - Objective Vital Signs & Weight: Vital Signs (12 hours) Temp Pulse Resp BP Pulse Ox 06/02/20 11:18 80 84/30 L 06/02/20 08:00 28 H 06/02/20 07:17 80 120/42 L 06/02/20 07:00 97.5 F L 06/02/20 04:00 97.3 F L 97 06/02/20 02:25 83 Weight Admit Weight 162 lb Weight 162 lb 12.8 oz Most Recent Monitor Data Heart Rate from ECG 76 NIBP 107/41 NIBP BP-Mean 63 Respiration from ECG 27 SpO2 94 I&O: 06/01/20 06/02/20 06/03/20 06:59 06:59 06:59 Intake Total 1050.0 7920.6 Output Total 49 333 5 Balance 1001.0 7587.6 -5 Result Diagrams: 06/02/20 05:39 06/02/20 05:39 Additional Labs: Accuchecks 06/02/20 06/01/20 00:22 18:11 POC Glucose 89 105 H Microbiology 05/31/20 09:40 Stool - Pending Stool Occult Blood ([facility]) - Final 01/05/20 17:22 Nasal swab Influenza Types A,B Direct EIA - Final 01/05/20 16:05 Urine voided Urine Culture - Final NO GROWTH AT 36 HOURS 06/01/20 23:13 Thigh - Swab Bacterial Culture - Preliminary 06/01/20 23:13 Thigh - Swab Gram Negative Neil 06/01/20 23:13 Thigh - Swab Bacterial Culture - Preliminary 05/31/20 09:19 Urine voided Urine Culture - Preliminary NO GROWTH AT 24 HOURS 01/05/20 16:52 Venous blood - Right Arm Blood Culture - Preliminary Specimen has been received and culture in progress. No Growth to date. 01/05/20 16:45 Venous blood - Left Hand Blood Culture - Preliminary Specimen has been received and culture in progress. No Growth to date. 01/05/20 16:05 Urine voided Urine Culture - Preliminary NO GROWTH AT 12 HOURS Laboratory Tests 01/06/20 05/31/20 05/31/20 06:14 09:06 09:06 WBC Hgb 12.3 L Plt Count 79 L Neutrophils % (Manual) 46 Band Neuts % (Manual) 37 H 49 H PT INR Carbon Dioxide Creatinine 1.32 H Lactic Acid Magnesium TSH 3rd Generation Cortisol Vancomycin Trough SARS-CoV-2 (PCR) 05/31/20 05/31/20 05/31/20 09:06 17:08 17:36 WBC Hgb Plt Count Neutrophils % (Manual) Band Neuts % (Manual) PT 25.3 H INR 2.3 Carbon Dioxide Creatinine Lactic Acid 10.4 H* Magnesium TSH 3rd Generation Cortisol Vancomycin Trough SARS-CoV-2 (PCR) Not Detected 05/31/20 06/01/20 06/01/20 20:22 04:00 04:00 WBC 5.7 Hgb 9.1 L Plt Count Neutrophils % (Manual) Band Neuts % (Manual) 34 H PT INR Carbon Dioxide 21 L Creatinine 2.25 H Lactic Acid 11.5 H* Magnesium TSH 3rd Generation Cortisol Vancomycin Trough SARS-CoV-2 (PCR) 06/01/20 06/01/20 06/01/20 19:40 19:40 20:50 WBC Hgb Plt Count Neutrophils % (Manual) Band Neuts % (Manual) PT INR Carbon Dioxide Creatinine Lactic Acid 8.9 H* Magnesium 1.3 L TSH 3rd Generation 1.5609 Cortisol Vancomycin Trough SARS-CoV-2 (PCR) 06/02/20 06/02/20 06/02/20 05:39 05:39 05:39 WBC Hgb Plt Count Neutrophils % (Manual) Band Neuts % (Manual) 42 H PT 60.9 H INR 7.2 H* Carbon Dioxide Creatinine Lactic Acid 9.6 H* Magnesium TSH 3rd Generation Cortisol Vancomycin Trough SARS-CoV-2 (PCR) 06/02/20 06/02/20 07:12 08:57 WBC Hgb Plt Count Neutrophils % (Manual) Band Neuts % (Manual) PT INR Carbon Dioxide Creatinine Lactic Acid Magnesium TSH 3rd Generation Cortisol 25.60 Vancomycin Trough 34.2 H* SARS-CoV-2 (PCR) Radiology Reviewed by me: Yes (PCXR - bilat infiltrates/edema, ETT in place) EKG Reviewed by me: Yes (Tele - SR in 90's) Hospitalist ROS - Medication Medications: Active Medications Generic Name Dose Route Start Last Admin Trade Name Janell PRN Reason Stop Dose Admin Acetaminophen 650 mg 05/31/20 18:03 06/01/20 16:33 Acetaminophen 325 Mg Tab PO 650 mg Q4H PRN Administration Headache/Fever/Mild Pain (1-3) Folic Acid 1 mg 06/01/20 09:00 06/02/20 08:16 Folic Acid 1 Mg Tab PO Not Given DAILY TONNY Metronidazole 500 mg/ Device 100 mls @ 100 mls/hr 05/31/20 22:00 06/02/20 10:03 IVPB 100 mls 0400,1000,1600,2200 TONNY Administration Norepinephrine Bitartrate 250 mls @ 0 mls/hr 06/01/20 00:30 06/02/20 06:32 Levophed IVPB 250 mls INF TONNY Administration Protocol Titrate Dextrose/Sodium Chloride 1,000 mls @ 0 mls/hr 06/01/20 06:30 06/02/20 02:56 D5 0.9% Ns IV Not Given .Q0M TONNY TKO Diltiazem HCl 125 mg/ Sodium 125 mls @ 10 mls/hr 06/01/20 19:00 06/02/20 05:34 Chloride IVPB 125 mls INF TONNY Administration Protocol 10 MG/HR Sodium Bicarbonate 140 meq/ 1,140 mls @ 75 mls/hr 06/02/20 07:15 06/02/20 07:58 Dextrose/Water IV 1,140 mls .[id number] TONNY Administration Thiamine HCl 200 mg/ Sodium 52 mls @ 100 mls/hr 06/02/20 09:00 06/02/20 10:02 Chloride IVPB 06/06/20 09:01 52 mls Q12HR TONNY Administration Ascorbic Acid 1,500 mg/ Sodium 53 mls @ 100 mls/hr 06/02/20 12:00 06/02/20 11:33 Chloride IVPB 06/06/20 06:32 53 mls Q6HR TONNY Administration Iron/Minerals/Multivitamins 1 tab 06/01/20 09:00 06/02/20 08:16 Multivitamin W/ Minerals 1 Tab PO Not Given DAILY TONNY Lorazepam 2 mg 06/02/20 10:00 06/02/20 10:13 Lorazepam 2 Mg/Ml Vial SLOW IVP 07/02/20 10:00 2 mg Q1H PRN Administration Breakthrough agitation Magnesium Oxide 400 mg 06/02/20 09:00 06/02/20 08:16 Magnesium Oxide 400 Mg Tab PO Not Given DAILY TONNY Melatonin 3 mg 06/01/20 23:59 06/02/20 00:07 Melatonin 3 Mg Tab PO 3 mg HSPRN PRN Administration Insomnia Ondansetron HCl 4 mg 05/31/20 18:03 06/01/20 23:22 Ondansetron Pf 4 Mg/2 Ml Vial IVP 4 mg Q6H PRN Administration Nausea/Vomiting - Exam General Appearance: ill appearing General - other findings: sedate on mech vent Eye: PERRL, anicteric sclera ENT: normocephalic atraumatic, no oropharyngeal lesions ENT - other findings: ETT in place Neck: supple, symmetric, no JVD, no thyromegaly, no lymphadenopathy Heart: RRR, no murmur, no gallops, no rubs, normal peripheral pulses Heart - other findings: S1, S2 Respiratory: tachypneic Respiratory - other findings: scattered rhonchi, diminished in bases bilat Gastrointestinal: soft, non-tender, non-distended, normal bowel sounds, no palpable masses Extremities: no cyanosis, no edema Skin: normal turgor Skin - other findings: pale, cool Neurological - other findings: sedate on mech vent Musculoskeletal: generalized weakness Psychiatric: somnolent, lethargic Hosp A/P (1) Severe sepsis with septic shock Code(s): A41.9 - SEPSIS, UNSPECIFIED ORGANISM; R65.21 - SEVERE SEPSIS WITH SEP TIC SHOCK Status: Acute Plan: continue aggressive support, Vasopressin/Levophed/IVF's, continue Cefepime/Metronidazole/Clindamycin, poor prognosis (2) Necrotizing fasciitis of lower leg Code(s): M72.6 - NECROTIZING FASCIITIS Status: Acute Plan: Plan for repeat washout, may be too unstable for surgery currently (3) SVT (supraventricular tachycardia) Code(s): I47.1 - SUPRAVENTRICULAR TACHYCARDIA Status: Acute Plan: Improved, continue rate-control measures (4) REGINO (acute kidney injury) Code(s): N17.9 - ACUTE KIDNEY FAILURE, UNSPECIFIED Status: Acute Plan: Persistent due to severe sepsis, acidosis worsening, bicarbonate amps x 2 now, consider HD but severely hypotensive (5) Lactic acidosis Code(s): E87.2 - ACIDOSIS Status: Acute Plan: Persistent, poor prognostic indicator (6) Acute respiratory failure with hypoxia Code(s): J96.01 - ACUTE RESPIRATORY FAILURE WITH HYPOXIA Status: Acute Plan: Continue mech ventilation, PCXR showing bilat infiltrates/edema likely contributing, ? ARDS (7) Coagulopathy Status: Acute Plan: Secondary to sepsis and cirrhosis, 2u FFP - Plan plan discussed w/ family, continue antibiotics, respiratory therapy, DVT proph w/SCDs Continue critical support Mech ventilation with FIO2 100% Vasopressin/Levophed for pressure support Cardizem gtt d/c'd 2D echo pending Consult Cardiology in am Continue Cefepime/Clindamycin/Metronidazole 2 amps sodium bicarbonate now Updated pt's parents at the bedside, poor overall prognosis discussed Lab: CMP, CBC now AM lab: CMP, CBC Total critical care provided by me: 35min
[2020-06-02 12:40] LABS: Hemoglobin 8.5 g/dL (14.0-18.0); Mean Corpuscular Hemoglobin 36.4 pg (27.0-31.0); Mean Platelet Volume 9.4 fL (7.4-10.4); Platelet Count 74 thou/uL (130-400); RBC Distribution Width 14.4 % (11.5-14.5); Red Blood Cell (RBC) Count 2.32 mill/uL (4.70-6.10); White Blood Cell (WBC) Count 19.3 thou/uL (4.8-10.8)
[2020-06-02] MEDS ORDERED: Succinylcholine Chloride 20 MG/ML 10 ml SYRINGE FS ONE (12:48)
[2020-06-02] MEDS ORDERED: Midazolam HCl 5 mg/5 ml Vial ONE (13:04)
[2020-06-02 13:05] LABS: ALT (SGPT) 81 U/L (8-55); AST (SGOT) 525 U/L (5-34); Albumin 2.5 g/dL (3.5-5.0); Alkaline Phosphatase 75 U/L (40-110); Anion Gap 26 mmol/L (10-20); BUN (Urea Nitrogen) 37 mg/dL (8.9-20.6); Bilirubin, Total 4.5 mg/dL (0.2-1.2); Calc. Creatinine Clearance 27 mL/min (70-130); Calcium 6.2 mg/dL (7.8-10.44); Carbon Dioxide 14 mmol/L (22-29); Chloride 102 mmol/L (98-107); Estimated GFR-MDRD 18; Globulin 2.9 g/dL (2.4-3.5); Glucose 126 mg/dL (70-105); Potassium 4.5 mmol/L (3.5-5.1); Protein, Total 5.4 g/dL (6.0-8.3); Sodium 137 mmol/L (136-145)
[2020-06-02 13:06] LABS: Band 71 % (5-11); Eosinophils 2 % (0-10); Lymphocytes 8 % (21-51); MDiff Complete? YES; Macrocytosis SLIGHT = 6-15 cells (100X) (0-5/hpf); Metamyelocyte 2 % (0-0); Monocytes 6 % (0-10); Neutrophil 11 % (42-75); Platelet Morphology Comment Appears Decreased; Polychromasia SLIGHT = 2-3 cells (100X) (0-2/hpf); Tear Drops SLIGHT = 2-5 cells (100X) (0-1/hpf)
[2020-06-02] MEDS ORDERED: Fentanyl 100 MCG/2 ML VIAL SLOW IVP PRN (13:07)
[2020-06-02] MEDS ORDERED: Ketamine 50 MG/ML (10ML VIAL) ONE (13:13)
[2020-06-02] MEDS ORDERED: Lidocaine 1% w/Epinephrine 1:100K 20 ML VIAL ONE (13:45)
[2020-06-02] MEDS: fentaNYL Citrate/PF 2,000 MCG in Sodium Chloride 0.9% 60 ML IV SCH (13:57)
[2020-06-02] MEDS ORDERED: Clindamycin/D5W 600 MG in Premix Bag 1 BAG IVPB SCH (14:00)
--- NOTE | 2020-06-02 15:26 | RAD ---
RADIOGRAPH CHEST 1 VIEW: DATE: 06/02/2020 TIME: 3:00 PM HISTORY: 39-year-old male with ARDS status post central line placement COMPARISON: 06/02/2020 12:10 PM FINDINGS: Endotracheal tube, esophagogastric tube, and left subclavian central venous catheter, remain. There is a new vertically oriented hemodialysis catheter descending from the right medial neck, with distal tip overlying SVC/right atrial junction. No pneumothorax identified. No other interval change. Severe bilateral alveolar infiltrates are unchanged. IMPRESSION: 1) right-sided hemodialysis catheter placement without pneumothorax. 2) no other interval change.
[2020-06-02 15:35] LABS: pH, Arterial 7.16 (7.35-7.45)
[2020-06-02 15:36] LABS: Puncture Site RFA
--- NOTE | 2020-06-02 16:05 | PDOC.OP ---
Operative Note - Operative Note Operative Note: PROCEDURE: Washout and debridement of left thigh necrotizing fasciitis and placement of right internal jugular hemodialysis catheter with ultrasound guidance SURGEON: Adryan Núñez M.D. DATE: 06/02/2020 PREOPERATIVE DIAGNOSIS: Necrotizing fasciitis of the left thigh and acute renal failure POSTOPERATIVE DIAGNOSIS: Necrotizing fasciitis of the left thigh and acute renal failure HISTORY: Patient with necrotizing fasciitis of the left thigh and acute renal failure requiring immediate dialysis. Initially the plan was to take him to the operating room for debridement of the left thigh and placement of a tunneled hemodialysis catheter, but unfortunately his condition has deteriorated to the point where he is not safe to transport so the decision was made to washout and debris the wound at the bedside and place a temporary hemodialysis port at the bedside as well. Internal jugular position was selected due to the lower extremity infection. PROCEDURE: After informed consent was obtained from the patient's medical power of mergers and acquisitions attorney the left leg was circumferentially prepped to the level of the groin and sterilely draped. Due to the patient's severe coagulopathy FFP was administered during the procedure 2 reduce bleeding risk. There was an evolving area of blistering and discoloration of the left ankle which was felt to most likely be due to the edema; however, a necrotizing infection had to be excluded. Local anesthesia was infused the skin and subcutaneous tissues at this level and an incision made over the involved area. The skin and subcutaneous tissues however were viable and well perfused although quite edematous. This wound was packed and a sterile dressing placed. Attention was then turned to the left thigh wound. Some of the questionable skin posteriorly had indeed demarcated and was nonviable. This was sharply excised back to bleeding tissue. There was no additional necrotic or infected appearing subcutaneous tissue or fascia. The underlying muscle appeared healthy and the remaining fascia was adherent to the muscle and normal in appearance. After excision of the nonviable skin the wound dimensions were 18 x 25 cm with 5 cm of undermining posteriorly. The wound care team then placed an irrigating VAC to the left thigh wound and attention was turned to placement of the right internal jugular dialysis catheter. The right neck and chest were prepped and draped in standard sterile fashion. A sterile ultrasound probe was used to identify the patent internal jugular vein and local anesthesia was infused the skin and subcutaneous tissues overlying this. The vein was accessed under direct ultrasound guidance and a wire threaded through the needle. The needle was removed leaving the wire in place which was confirmed by ultrasound to be within the patent compressible vein. The skin was incised and the tract was dilated. A hemodialysis catheter was placed over the wire and secured to the skin with suture. A chlorhexidine impregnated occlusive dressing was placed. Both ports easily aspirated dark venous nonpulsatile blood and easily flushed without resistance. There were no immediate complications. Estimated blood loss is minimal. There were no specimens. The inpatient dialysis nurse was alerted that the patient had dialysis access in place.
--- NOTE | 2020-06-02 16:10 | PRG ---
DATE OF SERVICE: SUBJECTIVE: The patient in ICU, intubated on Levophed and vasopressin. Mechanical ventilation, FiO2 of 100%. OBJECTIVE: VITAL SIGNS: T-max 97.9, BP 120/41, O2 saturation 96, 100% FiO2. EXTREMITIES: The left leg dressings were not removed. LUNGS: Symmetric air entry. ABDOMEN: Slightly distended. Olson catheter with output ranging from 49 to 333. LABORATORY DATA: White cell count is 19.3, hemoglobin 8.5 with 71% bands. Microbiology, we have a gram-negative kelley yet to be identified and susceptibility tested. The patient is currently on cefepime, Flagyl. Chest x-ray with hemodialysis catheter and no pneumothorax. Severe bilateral alveolar infiltrates. Echocardiogram, EF greater than 70%, diastolic dysfunction. 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 Job ID: [id number] [facility] NETWORKAmber
[2020-06-02] MEDS: Hydrocortisone Sod Succ/PF 100 mg/2 ml Vial IVP SCH (17:52)
--- NOTE | 2020-06-02 18:13 | PRG ---
DATE OF SERVICE: 06/02/2020 REASON FOR CONSULTATION: Cirrhosis/decompensated liver disease, abnormal GI imaging, sepsis. SUBJECTIVE: Overnight, the patient had an acute event of SVT, resulting in significant tachycardia that was not amenable to adenosine and ultimately placed on Cardizem drip. The patient also had significant hypotension overnight as well that also required placing him back on increased dosing of pressors in addition to re-intubation. Per the Surgery note, he had repeat debridement of his left lower extremity wound with concern for necrotizing fasciitis contributing to his acute decompensation. At the current time, the patient is intubated and sedated with hypotension while on pressor support. OBJECTIVE: VITAL SIGNS: Temperature 97.4, pulse 72, blood pressure 95/41, respiratory rate 30, saturating 93% on mechanical ventilation. GENERAL: The patient was lying in bed, in no acute distress, intubated and sedated. CARDIOVASCULAR: Regular rate and rhythm. RESPIRATORY: Coarse breath sounds auscultated in all lung [place], consistent with mechanical ventilation. ABDOMEN: Hypoactive bowel sounds. Soft. No grimacing or tenderness to palpation. Moderate abdominal distention with protruding umbilical hernia. EXTREMITIES: 1+/2+ bilateral lower extremity edema. LABORATORY DATA: CBC with a white blood cell count of 19.2, hemoglobin 9.3, hematocrit 28, platelets 76. INR 7.2. Chemistry with a sodium of 134, potassium 4.6, chloride 104, CO2 of 17, BUN 39, creatinine 3.69, glucose 39. AST 525, ALT 81, alkaline phosphatase 75, total bilirubin 4.5. Cortisol 25.6. IMAGING DATA: No current GI imaging is available for review. ASSESSMENT AND PLAN: The patient is a 39-year-old male with past medical history of alcoholic cirrhosis, complicated by ascites, presenting with left lower extremity cellulitis concerning for necrotizing fasciitis resulting in septic shock, acute kidney injury, and decompensated cirrhosis. Alcoholic cirrhosis/decompensated cirrhosis: The patient initially presented with a history of alcoholic cirrhosis with the diagnosis earlier this year with the diagnosis based on cirrhotic morphology on imaging, thrombocytopenia, splenomegaly, and the presence of esophageal/splenic varices on imaging. At this time, the patient has had a modest elevation in his LFTs in addition to worsening renal function, all consistent with and ischemic type picture, creating a hepatic ischemia. He is also experiencing an elevation in his INR, but at this time, it is unclear if this is due to further decompensation of his pre-existing liver disease, due to the sepsis/DIC, or combination of the two. Lastly, the patient is also having worsening ascites on physical exam in addition to lower extremity edema consistent with hypervolemia, but this is most likely due to resuscitative efforts secondary to worsening of this necrotizing fasciitis. At this time, it is unclear how much his liver is contributing to the current clinical situation, but it seems more the septic shock secondary to infection and his acute renal failure is contributing more at this time. Recommendations: 1. We would continue to trend his LFTs and INR daily for signs of liver inflammation and/or liver dysfunction. 2. We will consider paracentesis here in the near future, given the patient's increased abdominal distention. 3. Agree with administration of FFP for the time being in order to correct his coagulopathy. I will order vitamin K today for possible vitamin deficiency. 4. Diuretic therapy is contraindicated at this time due to significant hypotension. 5. Agree with broad-spectrum antibiotics as part of treatment for his sepsis creating an ischemic type picture within the liver. Abnormal GI imaging/epigastric pain: The patient initially presented with increased epigastric pain and abnormal GI imaging, showing thickening of the distal esophagus as well as regions within the small intestine and colon. However, the regions within the small intestine and colon seem to be more related to the pre-existing ascites creating edema of the intestinal wall. The thickening of the distal esophagus seems to be more related to acid reflux, especially with the patient exhibiting substernal pyrosis yesterday with the ingestion of a citrus drink. However, at the current time, with the patient's intubated status and mechanical ventilation, it is unclear if these processes are contributing to the current clinical picture. Recommendations: 1. We will continue the patient on famotidine 20 mg b.i.d. in light of probable acid reflux contributing to the distal esophageal thickening. At this time, the patient's clinical status is critical, transferring the patient to a higher level of care is reasonable at this time. We will continue to follow. Please call with any questions. Job ID: [id number]
[2020-06-02] MEDS: Meropenem 500 MG in Sodium Chloride 0.9% 100 ML IVPB SCH (18:38)
[2020-06-02] MEDS ORDERED: Vancomycin HCl 1.25 GM in Sodium Chloride 0.9% 250 ML 250 ML IVPB SCH (20:00)
[2020-06-02 21:49] LABS: Actual Bicarbonate (HCO3a) 14.9 mEq/L (22-28); CO2 Tension 37.7 mmHg (35.0-45.0); Calcium, Ionized (arterial) 0.82 mmol/L (1.12-1.30); Carboxyhemoglobin (COHb) 0.3 gm% (0.0-3.0); Hemoglobin (Hb) 8.7 g/dL (14.0-18.0); O2 Tension (PaO2), arterial 70.8 mmHg (80.0-100.0); Potassium - ABG Lab 4.32 mmol/L (3.70-5.30)
[2020-06-02 21:50] LABS: Puncture Site RR; pH, Arterial 7.22 (7.35-7.45)
[2020-06-02 21:51] LABS: ALV-art Gradient 595.075 mmHg (0-20)
[2020-06-02] MEDS ORDERED: Sodium Bicarb 50 MEQ/50 ML Abboject 8.4% SYRINGE IVP SCH (22:15)
--- NOTE | 2020-06-02 22:18 | CON ---
DATE OF CONSULTATION: 06/02/2020 INDICATION FOR CONSULTATION: A 39-year-old patient with multiple medical problems with what appears to be alcoholic cirrhosis. He presented with sepsis due to inner thigh infection, which then was found to be necrotizing fasciitis. He has had debridement. He has also had some abdominal discomfort. He has liver failure due to cirrhosis. His liver enzymes are elevating. He has had some debridement already since being in the hospital on his left thigh area and was then re-debrided again today. He actually last night apparently developed some supraventricular tachycardia. He has been hypotensive. He is on Levophed as well as dopamine. His kidneys also are having acute renal insufficiency or renal failure, will need to undergo dialysis likely, but during the interim, he has developed SVT with a rapid ventricular response. We were asked to see him. I do not have any previous cardiac history on the patient. It does not appear that he has had any significant problems in the past, but this time he has converted back to sinus rhythm after I believe he was given some IV diltiazem. At this time, he remains in sinus rhythm. PAST MEDICAL HISTORY: Significant for the alcoholic cirrhosis, hypertension, extensive surgeries to lower extremities after having an accident and had trauma and had required grafting. He also has history of cellulitis. SOCIAL HISTORY: He smokes. He continues to drink alcohol. FAMILY HISTORY: Unremarkable for any acute problems related to his situation. ALLERGIES: THERE ARE NO KNOWN DRUG ALLERGIES. PRESENT MEDICATIONS: Include; 1. Ascorbic acid. 2. Calcium gluconate, he was given, that was one time dose. 3. He is also on Maxipime. 4. He has been given Cleocin. 5. He was given IV diltiazem, I believe he is no longer on the diltiazem. 6. He is on norepinephrine as well as Levophed. 7. He is on metronidazole. 8. He has been given magnesium sulfate, one time dose. 9. He is on thiamin. 10. Vancomycin. 11. Vasopressin. 12. He was given earlier the adenosine as well as the IV diltiazem. 13. He was given folic acid. 14. He has been given a significant amount of fluid for hypotension and also due to the renal insufficiency, hoping that he would increase his urinary output. Unfortunately, this has not been the case. 15. He is on magnesium oxide. 16. He was given ipratropium and albuterol sulfate. 17. He is on other p.r.n. medications. REVIEW OF SYSTEMS: Unobtainable. The patient at this time is sedated and on the ventilator. PHYSICAL EXAMINATION: GENERAL: Reveals a middle-aged gentleman, who actually appears older than his stated age. VITAL SIGNS: Blood pressure is 127/41; heart rates in the 70s, it shows sinus rhythm at this time; respiratory rate 21; O2 saturation 94%. HEENT: Shows head to be normocephalic and atraumatic. Carotid pulses are present without any bruits. CHEST: Actually appears to be clear to auscultation. I cannot hear any rales, rhonchi, or wheezing. CARDIOVASCULAR: At this time reveals a regular rate and rhythm. Normal S1 and S2. There is no S3 or S4 noted. ABDOMEN: Appears to be soft. I could not elicit any tenderness. EXTREMITIES: Show a large wound on the left inner thigh, which has been debrided, it is almost in the entire thigh area on the medial aspect. A wound VAC is being applied. He has surgical incisions, which have healed on the right side. The lower extremities have edema. The ankles have edema. Pedal pulses were present. NEUROLOGICAL: Obviously the patient is sedated. LABORATORY DATA: Show a WBC of 19.3, hemoglobin was 8.5, hematocrit 26.4, platelet count was 74,000. His INR has increased from 2.3 to 7.2 due to his liver insufficiency, liver failure. Sodium is 137, potassium 4.5, BUN was 37, creatinine is 3.8. His AST is 525 and ALT of 81. He had 2+ bacteria in the urine. His EKG on May 31 showed a normal sinus rhythm, no evidence of any acute ST-segment changes. He does have small Q-waves in the inferior leads, which could be compatible with previous myocardial infarction. Otherwise, there were no acute changes noted. He has some decreased R-wave progression in the anterior leads, which also could be suspicious for possible myocardial infarction, however, does not meet the criteria. IMPRESSION: 1. A 39-year-old gentleman with SVT, which is converted back to sinus rhythm. We would continue diltiazem as needed. He certainly is a poor candidate for medications due to his hypotension associated with the sepsis. We will be more than happy to continue to follow the patient with you. If necessary, can give also IV beta blockers as needed for the SVT, should he have bouts of this later, should he survive this hospitalization, he may need to undergo an ablation or either switch to diltiazem or some other antiarrhythmic medication to control the SVT. 2. Necrotizing fasciitis with left thigh large wound incision, which is being treated by the surgeons. 3. Renal failure. The patient will undergo most likely dialysis if he is able to tolerate it from a blood pressure standpoint. Catheter will be placed today for possible dialysis by the surgeons. 4. Liver failure due to cirrhosis of the liver and alcohol abuse. 5. Hypertension, which at this time is hypotensive. He is maintained on pressors at this time. We will be more than happy to continue to follow the patient with you, but overall prognosis is relatively poor based on his continued alcohol use and multiple medical problems at this time. Job ID: [id number]
[2020-06-02] MEDS: EPINEPHrine 4 MG in Dextrose 5% in Water 250 ML IV SCH (22:48)
[2020-06-03] MEDS: Hydrocortisone Sod Succ/PF 100 mg/2 ml Vial IVP SCH ×4 (00:50→17:47)
[2020-06-03] MEDS: Vasopressin 20 UNIT, Admixture Fee 1 EACH in Sodium Chloride 0.9% 50 ML IV SCH ×2 (01:18→09:51)
[2020-06-03] MEDS ORDERED: Dextrose 50% Abboject 50 ML SYRINGE ONE ×2 (01:33→12:23)
[2020-06-03] MEDS: Norepinephrine 8 MG/0.9% NS 250 ML IVPB SCH ×5 (02:16→18:07)
[2020-06-03] MEDS: EPINEPHrine 4 MG in Dextrose 5% in Water 250 ML IV SCH ×3 (04:32→16:48)
[2020-06-03] MEDS: Meropenem 500 MG in Sodium Chloride 0.9% 100 ML IVPB SCH ×2 (04:54→16:47)
[2020-06-03 05:17] LABS: Prothrombin Time 56.8 sec (12.0-14.7)
[2020-06-03 05:29] LABS: INR-International Normal Ratio 6.6
[2020-06-03 05:31] LABS: ALT (SGPT) 271 U/L (8-55); AST (SGOT) 2177 U/L (5-34); Albumin 2.5 g/dL (3.5-5.0); Alkaline Phosphatase 131 U/L (40-110); Anion Gap 32 mmol/L (10-20); BUN (Urea Nitrogen) 41 mg/dL (8.9-20.6); Bilirubin, Total 5.2 mg/dL (0.2-1.2); Calc. Creatinine Clearance 23 mL/min (70-130); Calcium 6.3 mg/dL (7.8-10.44); Carbon Dioxide 13 mmol/L (22-29); Chloride 99 mmol/L (98-107); Estimated GFR-MDRD 15; Glucose 62 mg/dL (70-105); Potassium 4.7 mmol/L (3.5-5.1); Protein, Total 5.5 g/dL (6.0-8.3); Sodium 139 mmol/L (136-145)
[2020-06-03 05:48] LABS: HBSAg Index 0.18 S/CO (0-0.99); Hep B Surf Ag Non-Reactive S/CO (NonReactive)
[2020-06-03 05:50] LABS: Anisocytosis SLIGHT = 6-15 cells (100X) (0-5/hpf); Band 27 % (5-11); Lymphocytes 11 % (21-51); MDiff Complete? YES; Mean Corpuscular HGB CONC 31.2 g/dL (32.0-36.0); Mean Corpuscular Hemoglobin 35.7 pg (27.0-31.0); Mean Platelet Volume 9.4 fL (7.4-10.4); Monocytes 5 % (0-10); Neutrophil 57 % (42-75); Nucleated RBC 1 % (0); Platelet Count 64 thou/uL (130-400); Platelet Morphology Comment Appears Decreased; RBC Distribution Width 14.7 % (11.5-14.5); Red Blood Cell (RBC) Count 2.23 mill/uL (4.70-6.10); White Blood Cell (WBC) Count 22.7 thou/uL (4.8-10.8)
[2020-06-03 07:03] LABS: Actual Bicarbonate (HCO3a) 14.3 mEq/L (22-28); Base Excess (BEa) -13.9 mEq/L (-2.0 to +3.0); CO2 Tension 43.9 mmHg (35.0-45.0); Calcium, Ionized (arterial) 0.82 mmol/L (1.12-1.30); Carboxyhemoglobin (COHb) 0.1 gm% (0.0-3.0); Hemoglobin (Hb) 8.5 g/dL (14.0-18.0); O2 Tension (PaO2), arterial 63.2 mmHg (80.0-100.0); Potassium - ABG Lab 4.81 mmol/L (3.70-5.30)
[2020-06-03 07:06] LABS: ALV-art Gradient 594.925 mmHg (0-20); Puncture Site LRA; pH, Arterial 7.13 (7.35-7.45)
[2020-06-03] MEDS ORDERED: Famotidine/PF 20 mg/2ml Vial SLOW IVP SCH (09:00)
[2020-06-03] MEDS ORDERED: Vancomycin 1 GM in Premix Bag 1 BAG IVPB SCH (09:00)
[2020-06-03] MEDS: Magnesium Oxide 400 MG TAB PO SCH (09:04)
[2020-06-03] MEDS: Multivitamin W/ Minerals 1 TAB PO SCH (09:04)
[2020-06-03] MEDS: Folic Acid 1 MG TAB PO SCH (09:05)
[2020-06-03] MEDS: fentaNYL Citrate/PF 2,000 MCG in Sodium Chloride 0.9% 60 ML IV SCH (09:56)
[2020-06-03] MEDS ORDERED: Cefepime 1 GM in Sodium Chloride 0.9% 100 ML IVPB SCH (10:00)
--- NOTE | 2020-06-03 10:53 | RAD ---
Chest one view HISTORY: Dyspnea. Follow-up. COMPARISON: 06/02/2020. FINDINGS: Cardiac silhouette is magnified and enlarged. Pulmonary vasculature remains engorged with w idespread airspace density similar in appearance to the prior study. Mediastinum is midline. Lines and tubes appear unchanged in position. Small amount of fluid density e xtends along the right lateral chest wall. No evidence of pneumothorax. IMPRESSION : Cardiomegaly, pulmonary edema, and other findings are stable.
--- NOTE | 2020-06-03 11:08 | PRG ---
DATE OF SERVICE: 06/03/2020 REASON FOR CONSULTATION: Cirrhosis/decompensated liver disease, abnormal GI imaging, sepsis secondary to necrotizing fasciitis. SUBJECTIVE: Overnight, the patient was placed on yet another 3rd pressor in order to maintain adequate blood pressure and perfusion of his organs. Despite that, he continues to have worsening of his labs in addition to worsening respiratory function. Per speaking with family today at bedside, he has been made DNR given the worsening of his clinical status. Currently, he is intubated and sedated with hypotension while on significant pressor support. OBJECTIVE: VITAL SIGNS: Temperature 99.3, pulse 107, blood pressure 93/31, respiratory rate 29, saturating 94% on mechanical ventilation. GENERAL: The patient was lying in bed, in no acute distress, intubated and sedated. CARDIOVASCULAR: Tachycardic rate, but regular rhythm. RESPIRATORY: Coarse breath sounds auscultated in all lung [place] consistent with mechanical ventilation. ABDOMEN: Hypoactive bowel sounds. Soft. No grimacing to palpation. Moderate abdominal distention with a protruding umbilical hernia. EXTREMITIES: 1+/2+ bilateral lower extremity edema. LABORATORY DATA: CBC with a white blood cell count of 22.7, hemoglobin 8, hematocrit 25.5, platelets 64. INR 6.6. Chemistry with a sodium of 139, potassium 4.7, chloride 99, CO2 of 13, BUN 41, creatinine 4.4, glucose 62. AST 2177, ALT 271, alkaline phosphatase 131, total bilirubin 5.2. IMAGING DATA: No current GI imaging is available for review. ASSESSMENT AND PLAN: The patient is a 39-year-old male with past medical history of alcoholic cirrhosis complicated by ascites, presenting with left lower extremity cellulitis/necrotizing fasciitis resulting in septic shock and multiorgan failure including acute kidney injury/failure and decompensation of his cirrhosis. Alcoholic cirrhosis/decompensated cirrhosis: The patient is presenting with a prior diagnosis of cirrhosis with the diagnosis made earlier this year. At this time, the patient has tenuous liver function to begin with and when coupled with sepsis and septic shock related to his necrotizing fasciitis and associated hypotension, it has contributed to what appears to be hepatic ischemia as indicated by elevation in his LFTs (although his elevated AST is most likely due to muscle injury). He continues to have a significantly elevated INR despite administration of vitamin K and FFP, although it is unclear if this is due to worsening of his liver disease, sepsis/DIC, or combination of the two (I feel like it is more likely combination of the two). Given his significant hypotension while on 3 different pressor support in addition to end-stage liver disease with ischemic hepatopathy, the likelihood of a meaningful recovery is low. RECOMMENDATIONS: 1. Would continue to trend his LFTs and INR daily. 2. Would consider paracentesis given the patient's increased abdominal distention for comfort care. 3. Diuretic therapy is contraindicated at this time due to significant hypotension. 4. Agree with continuation of broad-spectrum antibiotics as part of treatment for his sepsis/septic shock. 5. Currently, the patient is not a transplant candidate due to his recent alcohol use and concurrent infection making it an absolute contraindication. At this time, given the multiorgan failure and pressor requirement, the likelihood of meaningful recovery is extremely low. The patient has been made DNR in light of the situation, which I think is reasonable based on his current clinical status. We will continue to follow peripherally at this time. Please call with any additional questions. Job ID: [id number]
--- NOTE | 2020-06-03 11:10 | PRG ---
DATE OF SERVICE: 06/03/2020 SUBJECTIVE: A 39-year-old gentleman being seen for acute kidney injury. The patient remains intubated and resting. PHYSICAL EXAMINATION: General: The patient is awake and alert. VITAL SIGNS: Afebrile, pulse 88, breathing at 16, blood pressure 93/31. HEENT: Head normocephalic and atraumatic. Eyes intact, no ulcers. Nose intact, no ulcers. Ears intact, no ulcers. Neck: Supple. No JVD. Chest: Symmetrical and clear. Cardiovascular: Shows S1 and S2, no rub, no murmur. Gastrointestinal: Abdomen is soft, bowel sounds positive. Extremities: Show no edema or ulcers. Skin: Musculoskeletal: Shows no joint swelling or stiffness. Genitourinary: Shows no Olson or CVA tenderness. Neurologic: The patient is resting. LABORATORY DATA: Reviewed. ASSESSMENT: 1. Acute kidney injury with chronic kidney disease with multiorgan failure. Risks versus benefits of dialysis were discussed, but due to the patient's underlying poor prognosis and multiorgan failure, he will not be able to tolerate renal replacement therapy if he come to that point. He does have metabolic acidosis, which can be treated medically. Overall, the family wants him to be on comfort care, so I will sign off on the patient's metabolic acidosis. Continue aggressive bicarb replacement. Medication based on GFR appropriate. 2. Liver failure. 3. Renal failure. Overall prognosis is poor. Please reconsult as needed. Job ID: [id number]
[2020-06-03] MEDS: Dextrose 50% Abboject 50 ML SYRINGE SLOW IVP PRN ×2 (12:27→16:01)
[2020-06-03] MEDS: Sodium Bicarbonate 140 MEQ in Dextrose 5% in Water 1,000 ML IV SCH (13:41)
[2020-06-03 16:13] VITALS: TEMP 99.1
--- NOTE | 2020-06-03 18:52 | PDOC.HOSPP ---
- Subjective Subjective: d/w his mother at bedside. pt remains intubated, on multiple pressors. CODE STATUS was changed to DNR. Family plan to withdraw care tomorrow once other family members arrive. - Objective Vital Signs & Weight: Vital Signs (12 hours) Temp Pulse Resp Pulse Ox 06/03/20 18:21 99 30 H 95 06/03/20 18:18 99 06/03/20 18:00 30 H 06/03/20 16:00 99.1 F 30 H 06/03/20 14:58 101 H 06/03/20 14:00 30 H 06/03/20 13:12 104 H 06/03/20 12:00 99.0 F 30 H 06/03/20 11:06 106 H 06/03/20 10:00 30 H 06/03/20 08:00 30 H 06/03/20 07:17 94 L 06/03/20 07:00 99.3 F Weight Admit Weight 162 lb Weight 162 lb 12.8 oz Most Recent Monitor Data Heart Rate from ECG 99 NIBP 81/33 NIBP BP-Mean 49 Respiration from ECG 27 SpO2 96 I&O: 06/02/20 06/03/20 06/04/20 06:59 06:59 06:59 Intake Total 7920.6 5182.2 3451 Output Total 333 413 0 Balance 7587.6 4769.2 3451 Result Diagrams: 06/03/20 04:49 06/03/20 04:49 Additional Labs: Accuchecks 06/03/20 06/03/20 06/03/20 18:05 06:10 04:25 POC Glucose 78 74 69 L 06/02/20 21:42 POC Glucose 72 Radiology Reviewed by me: Yes EKG Reviewed by me: Yes Hospitalist ROS - Medication Medications: Active Medications Generic Name Dose Route Start Last Admin Trade Name Freq PRN Reason Stop Dose Admin Acetaminophen 650 mg 05/31/20 18:03 06/01/20 16:33 Acetaminophen 325 Mg Tab PO 650 mg Q4H PRN Administration Headache/Fever/Mild Pain (1-3) Albuterol/Ipratropium 3 ml 06/02/20 13:00 06/03/20 18:21 Ipratropium/Albuterol Sulfate 3 Ml Neb NEB 3 ml [id number] TONNY Administration Dextrose/Water 25 gm 06/03/20 01:49 06/03/20 16:01 Dextrose 50% Abboject 50 Ml Syringe SLOW IVP 25 gm PRN PRN Administration Hypoglycemia Famotidine 20 mg 06/03/20 09:00 06/03/20 09:04 Famotidine/Pf 20 Mg/2ml Vial SLOW IVP 20 mg DAILY TONNY Administration Folic Acid 1 mg 06/01/20 09:00 06/03/20 09:05 Folic Acid 1 Mg Tab PO Not Given DAILY TONNY Hydrocortisone Sodium Succinate 50 mg 06/02/20 18:00 06/03/20 17:47 Hydrocortisone Sod Succ/Pf 100 Mg/2 Ml Vial IVP 06/09/20 18:01 50 mg Q6HR TONNY Administration Norepinephrine Bitartrate 250 mls @ 0 mls/hr 06/01/20 00:30 06/03/20 18:07 Levophed IVPB 250 mls INF TONNY Administration Protocol Titrate Dextrose/Sodium Chloride 1,000 mls @ 0 mls/hr 06/01/20 06:30 06/02/20 02:56 D5 0.9% Ns IV Not Given .Q0M TONNY TKO Diltiazem HCl 125 mg/ Sodium 125 mls @ 10 mls/hr 06/01/20 19:00 06/02/20 05:34 Chloride IVPB 125 mls INF TONNY Administration Protocol 10 MG/HR Sodium Bicarbonate 140 meq/ 1,140 mls @ 60 mls/hr 06/02/20 07:15 06/03/20 13: 41 Dextrose/Water IV 1,140 mls .Q19H TONNY Administration Thiamine HCl 200 mg/ Sodium 52 mls @ 100 mls/hr 06/02/20 09:00 06/03/20 09:00 Chloride IVPB 06/06/20 09:01 52 mls Q12HR TONNY Administration Ascorbic Acid 1,500 mg/ Sodium 53 mls @ 100 mls/hr 06/02/20 12:00 06/03/20 17:48 Chloride IVPB 06/06/20 06:32 53 mls Q6HR TONNY Administration Fentanyl Citrate 2,000 mcg/ 100 mls @ 0 mls/hr 06/02/20 10:00 06/03/20 09:56 Sodium Chloride IV 07/02/20 10:00 100 mls INF TONNY Administration Protocol Per Protocol Vasopressin 20 unit/ 51 mls @ 0 mls/hr 06/02/20 11:45 06/03/20 09:51 Miscellaneous Medication 1 IV 51 mls each/ Sodium Chloride INF TONNY Administration Protocol As Directed Meropenem 500 mg/ Sodium 100 mls @ 200 mls/hr 06/02/20 17:00 06/03/20 16:47 Chloride IVPB 100 mls 0500,1700 TONNY Administration Epinephrine 4 mg/ Dextrose/ 254 mls @ 0 mls/hr 06/02/20 22:15 06/03/20 16:48 Water IV 254 mls INF TONNY Administration Protocol Titrate Iron/Minerals/Multivitamins 1 tab 06/01/20 09:00 06/03/20 09:04 Multivitamin W/ Minerals 1 Tab PO 1 tab DAILY TONNY Administration Lorazepam 2 mg 06/02/20 10:00 06/02/20 10:13 Lorazepam 2 Mg/Ml Vial SLOW IVP 07/02/20 10:00 2 mg Q1H PRN Administration Breakthrough agitation Magnesium Oxide 400 mg 06/02/20 09:00 06/03/20 09:04 Magnesium Oxide 400 Mg Tab PO 400 mg DAILY TONNY Administration Melatonin 3 mg 06/01/20 23:59 06/02/20 00:07 Melatonin 3 Mg Tab PO 3 mg HSPRN PRN Administration Insomnia Ondansetron HCl 4 mg 05/31/20 18:03 06/01/20 23:22 Ondansetron Pf 4 Mg/2 Ml Vial IVP 4 mg Q6H PRN Administration Nausea/Vomiting Propofol 1,000 mg 06/02/20 10:00 06/02/20 17:54 Propofol 1,000 Mg/100 Ml Vial IV 07/02/20 10:00 1,000 mg INF PRN Administration TO ACHIEVE GOAL RASS Protocol - Exam General - other findings: intubated Eye: PERRL ENT: normocephalic atraumatic Neck: supple Heart: RRR Respiratory: CTAB Gastrointestinal: soft Extremities: no cyanosis, no clubbing, no edema Skin: normal turgor Neurological - other findings: intubate and sedated Hosp A/P - Plan This is an unfortunate 39 years old gentleman who has significant past medical history as of alcoholic liver cirrhosis complicated with recurrent anxiety, who presented to the ED with cellulitis/necrotizing fasciitis resulting with septic shock and multiorgan failure. Severe sepsis with septic shock, resulted with multiple organ failure Acute hypoxic respiratory failure Necrotizing fasciitis of the lower leg - s/p I&D REGINO Alcoholic liver cirrhosis with evidence of decompensation SVT Coagulopathy secondary to underlying liver disease and in setting of severe sepsis History of alcohol abuse Plan: Patient remains intubated and sedated Requires multiple vasopressors support despite that he remains hypotensive. CODE STATUS changed to DNR, family would like to withdraw cares tomorrow when other members arrive cont current mgt for now cont supportive cares Appreciate all specialists help.
--- NOTE | 2020-06-04 06:28 | PRG ---
DATE OF SERVICE: 06/03/2020 SUBJECTIVE: A 39-year-old gentleman, who is intubated in the vent, has agonal respirations on the vent unfortunately. OBJECTIVE: VITAL SIGNS: Respiratory rate is 30, pulse is 100, blood pressure is 87 systolic, on 3 pressors, on Levophed, vasopressin, and epinephrine maxed out. He has had no urine output for almost 48 hours. HEENT: He is more jaundiced. Pupils are equal. CHEST: Extensive rhonchi, crackles. CARDIAC: Sinus tach. ABDOMEN: Distended, soft. EXTREMITIES: Trace edema. LABORATORY DATA: White count 22,000, H and H 8 and 25, platelet count 64. INR 6.6. PO2 is 63, pCO2 is 43, pH is 7.13 on 100% and PEEP of 12. His creatinine is 4, BUN is 41, bicarb is 13, anion gap is 32, total bilirubin is 5.2, AST 2177 . Blood culture, gram-negative kelley from the thigh swab. IMPRESSION: Sepsis, renal failure, liver failure, ARDS, persistent severe acidosis. PLAN: I discussed with the family at length. Father and mother at the bedside. The chance of patient getting any better is very slim. We are going to give him additional bicarb. He is clearly not weanable at this stage. His prognosis is grave. Family has made him a DNR, which I agree. In the meantime, continue supportive care. TIME SPENT: One-half hour of critical care time. Job ID: [id number]
--- NOTE | 2020-06-04 08:47 | EKG ---
Test Reason : Blood Pressure : / mmHG Vent. Rate : 186 BPM Atrial Rate : 208 BPM P-R Int : 000 ms QRS Dur : 090 ms QT Int : 272 ms P-R-T Axes : 000 039 022 degrees QTc Int : 478 ms Supraventricular tachycardia (narrow complex regular tachycardia) Abnormal ST depression c/w ischemic change Cannot rule out Anterior infarct (cited on or before 31-MAY-2020) Abnormal ECG When compared with ECG of 31-MAY-2020 09:27, (Unconfirmed) QRS axis Shifted left Criteria for Inferior infarct are no longer Present ST now depressed in Inferior leads ST now depressed in Anterolateral leads Nonspecific T wave abnormality has replaced inverted T waves in Inferior leads T wave inversion now evident in Lateral leads Confirmed by DR. Checo ARCOS ([id number]) on 06/04/2020 8:47:13 AM Referred By: SUHAIL Confirmed By:DR. Checo ARCOS
--- NOTE | 2020-06-04 17:54 | DIS ---
DATE OF ADMISSION: 05/31/2020 DATE OF DISCHARGE: 06/03/2020 DISCHARGE DIAGNOSES: 1. Severe sepsis with septic shock resulted with multiorgan failure. 2. Acute hypoxic respiratory failure. 3. Necrotizing fasciitis of the left lower leg, status post I and D. 4. Acute kidney injury. 5. Alcoholic liver cirrhosis with evidence of decompensation. 6. Supraventricular tachycardia. 7. Coagulopathy secondary to underlying liver disease in settings of severe sepsis. 8. History of alcohol abuse. CONSULTATIONS: 1. Pulmonology, Dr. Castle. 2. Nephrology, Dr. Baker. 3. Infectious Disease, Dr. Liu. 4. Surgery, Dr. Núñez. 5. GI, Dr. Chester. 6. Cardiology, Dr. Sibley. PROCEDURE PERFORMED: I and D of the necrotizing fasciitis of the left leg by Dr. Núñez on 05/31/2020. Repeat I and D of the necrotizing fasciitis of the left thigh on 06/02/2020. IMAGING STUDIES: Chest x-rays on 05/31/2020, no radiographic evidence of cardiopulmonary process. Lower extremity venous Doppler was negative for DVT. CT abdomen and pelvic, evidence of cirrhosis with findings suggestive of portal hypertension with esophageal, gastrohepatic and splenic varices visualized, gallbladder distention. CT of the lower extremity, infectious/inflammatory changes involving the left lower extremity soft tissue. LABORATORY DATA: Wound culture positive for vibrio vulnificus. WBC 22.7, hemoglobin 8, hematocrit 25.5, platelets 64. INR 2.3 on admission, went up to as high as 7.2 on 06/02/2020. Sodium 139, potassium 4.9, chloride 99, BUN 41, creatinine 4.4 on 06/03/2020. Creatinine was 1.32 on 05/31/2020. AST 2177, total bilirubin 5.2, ALT 271. TSH within normal limits. Lipase 16. HISTORY OF PRESENT ILLNESS AND BRIEF HOSPITAL COURSE: This was an unfortunate 39-year-old gentleman, who has significant past medical history of alcoholic liver cirrhosis complicated with ascites, portal hypertension, alcohol abuse, who was actually stopped drinking about 2 weeks ago, who presented to the ED with a low-grade fever, and pain on his left lower extremity, symptoms associated with nausea and vomiting, epigastric discomfort. The patient was ultimately admitted to hospice service for sepsis secondary to cellulitis, and decompensated liver cirrhosis. His lower extremity CT came back, apparently finding suggestive of possible necrotizing fasciitis. For that reason, Surgery was consulted. The patient was seen by Dr. Núñez, who subsequently took him to the OR for emergent I and D. The patient was started on broad-spectrum IV antibiotics. The patient unfortunately may remain intubated after surgery. Multiple specialists were consulted including Pulmonology, GI, Nephrology, and Surgery as noted above. The patient developed severe sepsis with septic shock, required multiple vasopressor. His clinical course continued to deteriorate. Code status was discussed with family member including his mother and father. The patient had poor prognosis given multiorgan failure. Code status was changed to DNR. Family was subsequently withdraw care. The patient was immediately after compassionate extubation. The patient was pronounced on 2000 hours on 06/03/2020. DISPOSITION: The patient . Job ID: [id number] [id number]
[2020-06-07] MEDS ORDERED: Thiamine 100 MG TAB PO SCH (09:00)
== END 2020-06-03 20:01 | disposition expired | DRG 853 ==
LOC: ERS 08:19 → IMCU/EMU 16:06 → CCU 06-01 04:16
PROVIDERS: ADMIT Internal Medicine; ATTEND Internal Medicine
PROC: 0JBM0ZZ Excision of Left Upper Leg Subcutaneous Tissue and Fascia, Open Approach (ICD-10-PCS; principal; 2020-05-31)
PROC: 0JBM0ZZ Excision of Left Upper Leg Subcutaneous Tissue and Fascia, Open Approach (ICD-10-PCS; 2020-06-02)
PROC: 0BH17EZ Insertion of Endotracheal Airway into Trachea, Via Natural or Artificial Opening (ICD-10-PCS; 2020-06-02)
PROC: 5A1935Z Respiratory Ventilation, Less than 24 Consecutive Hours (ICD-10-PCS; 2020-06-02)
PROC: 3E033XZ Introduction of Vasopressor into Peripheral Vein, Percutaneous Approach (ICD-10-PCS; 2020-06-02)
PROC: 06HY33Z Insertion of Infusion Device into Lower Vein, Percutaneous Approach (ICD-10-PCS; 2020-06-02)
PROC: 0JH60XZ Insertion of Tunneled Vascular Access Device into Chest Subcutaneous Tissue and Fascia, Open Approach (ICD-10-PCS; 2020-06-02)
DX: A41.89 Other specified sepsis (principal); R65.21 Severe sepsis with septic shock; J96.01 Acute respiratory failure with hypoxia; M72.6 Necrotizing fasciitis; J69.0 Pneumonitis due to inhalation of food and vomit; K76.6 Portal hypertension; L03.116 Cellulitis of left lower limb; N17.9 Acute kidney failure, unspecified; I47.1 Supraventricular tachycardia; E87.2 Acidosis; D68.4 Acquired coagulation factor deficiency; Z66 Do not resuscitate; Z20.828 Contact with and (suspected) exposure to other viral communicable diseases; K70.31 Alcoholic cirrhosis of liver with ascites; K31.89 Other diseases of stomach and duodenum; F17.210 Nicotine dependence, cigarettes, uncomplicated; F41.9 Anxiety disorder, unspecified; F32.9 Major depressive disorder, single episode, unspecified; K42.9 Umbilical hernia without obstruction or gangrene; K40.90 Unilateral inguinal hernia, without obstruction or gangrene, not specified as recurrent; D69.6 Thrombocytopenia, unspecified; N18.9 Chronic kidney disease, unspecified; F10.20 Alcohol dependence, uncomplicated; D64.9 Anemia, unspecified; K72.90 Hepatic failure, unspecified without coma; I12.9 Hypertensive chronic kidney disease with stage 1 through stage 4 chronic kidney disease, or unspecified chronic kidney disease
CPT/HCPCS: 36415; 36416; 36430; 71045; 74177; 76705; 80048; 80053; 80202; 81003; 81015; 82274; 82533; 82550; 82805; 83605; 83690; 83735; 84100; 84443; 84484; 85025; 85060; 85610; 85730; 86850; 86900; 86901; 87070; 87077; 87086; 87186; 87205; 87340; 87635; 88304; 93005; 93010; 93306; 94002; 94003; 94640; 94660; 96361; 96365; 96367; 96375; 96376; C9113; J0153; J0171; J0330; J0692; J0696; J1100; J1642; J1720; J1940; J2001; J2060; J2185; J2250; J2270; J2370; J2405; J2704; J3010; J3370; J3411; J3430; J3475; J3490; J7050; J7070; J7620; P9047; P9059; Q9967; S0028; U0003